=== PATIENT | female | born 1970 | race Caucasian/White ===

== ENCOUNTER → 2018-05-24 12:08 | Outpatient (CLI) | payer OTHER, MEDICAID, SELFPAY ==
--- NOTE | 2018-05-24 | DI.RAD.S_ITS ---
PROCEDURE: XR ACUTE ABDOMEN SERIES INDICATIONS: ABD PAIN, CONSTIPAITION TECHNIQUE: One view chest and two views of the abdomen were acquired. COMPARISON: [facility], CR, CHEST 2 VIEW, 12/06/2012, 17:48. [facility], CT, KIDNEY/ URETER/BLADDER, 09/13/2016, 0:20. FINDINGS: Surgical changes and devices: None. Chest: Lungs are clear. Heart size is normal. No pleural effusions. No pneumoperitoneum. Abdomen: Bowel gas pattern is normal. There is a large amount of stool in colon. No suspicious calcifications. Visualized solid organ contours appear normal. Bones: No suspicious bony lesions. IMPRESSION: A large amount of stool in colon. Dictated by: Enio Robertson M.D. on 05/24/2018 at 17:33 Approved by: Enio Robertson M.D. on 05/24/2018 at 17:33
== END ==
PROVIDERS: Family Provider Surgery; PCP Family Medicine; Visit Provider Family Medicine
DX: K59.00 Constipation, unspecified (principal); R10.9 Unspecified abdominal pain
CPT/HCPCS: 74021

== ENCOUNTER 2018-05-29 14:48 | Day surgery (SDC) | payer OTHER, MEDICAID, SELFPAY ==
[2018-05-29] VITALS (7 sets, daily range): BP systolic 87–112; BP diastolic 57–84; PULSE 63–70; RESP 11–18; TEMP 36.4–37.1; O2SAT 95–98; BMI 27.3
[2018-05-29] MEDS: SODIUM CHLORIDE 0.9% 1,000 ML 200 ML IV (15:24)
--- NOTE | 2018-05-29 16:07 | SUR.OPER ---
Pt. had Fentanyl 250 mcg, Versed 10mg
--- NOTE | 2018-05-29 16:13 | PM.PREOP ---
Pre-operative Note Interval Note Pre-op Check: Yes History & Physical Reviewed by Physician Changes: No ASA Class (for procedural sedation): III
--- NOTE | 2018-05-29 16:13 | PM.OP.1 ---
Operative Date/Time/Diagnoses Date of procedure: 05/29/18 Time of procedure: 16:13 Pre-op diagnosis: Constipation Post-op diagnosis: same Procedure & Clinicians Procedure: Colonoscopy to cecum Same procedure as scheduled: Yes Indications: No prior colonoscopy Surgeon: Azalia Rodriguez Click Yes if Unassisted: Yes Anesthesia Type: Sedation ( Versed 10 mg; fentanyl 250 mcg) Operative Notes Findings: 1. Adequate prep 2. No polyps or mass lesions 3. No AV malformations 4. Grade 2 internal hemorrhoids 5. Normal colonoscopy with no clear etiology for constipation Closure Type: not applicable Procedure in detail: After obtaining informed consent, the patient was brought to the GI suite and placed in the left lateral decubitus position on the examination table. After placement of appropriate monitors, the patient was given incremental doses of Versed and Fentanyl until an appropriate level of sedation was achieved. A time out was held per SCOAP protocol. A digital rectal examination was performed and did not reveal any masses or obstructing lesions. The colonoscope was gently passed into the patient's anus and the entire colon navigated to the level of the cecum with minimal difficulty. Once in the cecum, the scope was withdrawn being sure to go before and beyond all mucosal folds and prominences and get an excellent examination. The findings are noted above. At the level of the rectal vault, the scope was retroflexed and the internal anal canal was examined. The scope was straightened and air aspirated from the colon. The instrument was removed from the patient's body and the procedure was concluded. The patient was allowed to awaken from sedation without difficulty and taken to the post-anesthesia care unit in good condition. Total sedation time was 24 min Total withdrawal time 9 min Complications: none Condition: stable Disposition: PACU Plan for aftercare: 1. Discharge to home 2. Plan for next colonoscopy in 10 years or as clinically indicated
[2018-05-29] MEDS: fentaNYL 250 MCG/5 ML INJ IV (16:14)
[2018-05-29] MEDS: MIDAZOLAM 5 MG/5 ML VIAL IV (16:16)
== END 2018-05-29 17:17 | disposition home or self-care (01) ==
PROVIDERS: PCP Family Medicine; Visit Provider Surgery
PROC: 0DJD8ZZ Inspection of Lower Intestinal Tract, Via Natural or Artificial Opening Endoscopic (ICD-10-PCS; CPT 45378; principal; 2018-05-29 14:00)
DX: K59.00 Constipation, unspecified (principal); K64.0 First degree hemorrhoids; F17.210 Nicotine dependence, cigarettes, uncomplicated; F41.9 Anxiety disorder, unspecified; M79.7 Fibromyalgia; F43.12 Post-traumatic stress disorder, chronic
CPT/HCPCS: 45378; 99152; 99153; J2250; J3010

== ENCOUNTER → 2019-09-12 12:45 | Outpatient (CLI) | payer OTHER, MEDICAID, SELFPAY ==
--- NOTE | 2019-09-12 | DI.RAD.S_ITS ---
PROCEDURE: XR RIBS LT MIN 3V W CXR1V INDICATIONS: LEFT ANT RIB PAIN S/P FALL TECHNIQUE: 2 views of the left ribs were acquired, along with a single view chest. COMPARISON: None. FINDINGS: Surgical changes and devices: None. Bones and chest wall: No fractures or dislocations. No suspicious bony lesions. Overlying soft tissues appear unremarkable. Lungs and pleura: No pleural effusions or pneumothorax. Lungs appear clear. Mediastinum: Mediastinal contours appear normal. Heart size is normal. IMPRESSION: No rib fracture. No acute disease. Dictated by: Nura Sawyer M.D. on 09/12/2019 at 15:17 Approved by: Nura Sawyer M.D. on 09/12/2019 at 15:19
== END ==
PROVIDERS: PCP Family Medicine; Visit Provider Family Medicine
DX: R07.81 Pleurodynia (principal)
CPT/HCPCS: 71101

== ENCOUNTER → 2019-10-22 16:03 | Outpatient (ROUT) | payer OTHER, MEDICAID, SELFPAY ==
[2019-10-22 16:43] LABS: Influenza A - CEPHEID Flu A NEGATIVE (NEGATIVE); Influenza B - CEPHEID Flu B NEGATIVE (NEGATIVE)
== END ==
PROVIDERS: PCP Family Medicine; Visit Provider Nurse Practitioner Family
DX: R05 Cough (principal)
CPT/HCPCS: 87502

== ENCOUNTER → 2019-10-22 16:03 | Outpatient (CLI) | payer OTHER, MEDICAID, SELFPAY ==
--- NOTE | 2019-10-22 | DI.RAD.S_ITS ---
PROCEDURE: XR CHEST 2V INDICATIONS: cough TECHNIQUE: 2 views of the chest were acquired. COMPARISON: [facility], , CHEST 2 VIEW, 12/06/2012, 17:48. FINDINGS: Surgical changes and devices: None. Lungs and pleura: Lungs are clear. No pleural effusions or pneumothorax. Mediastinum: Mediastinal contours are normal. Heart size is normal. Bones and chest wall: No suspicious bony abnormalities. Soft tissues appear unremarkable. IMPRESSION: No acute disease. Dictated by: Nura Sawyer M.D. on 10/22/2019 at 16:46 Approved by: Nura Sawyer M.D. on 10/22/2019 at 16:47
== END ==
PROVIDERS: PCP Family Medicine; Visit Provider Nurse Practitioner Family
DX: R05 Cough (principal); M25.50 Pain in unspecified joint; M79.10 Myalgia, unspecified site
CPT/HCPCS: 71046; 87502

== ENCOUNTER → 2020-10-20 15:43 | Outpatient (CLI) | payer OTHER, MEDICAID, SELFPAY ==
--- NOTE | 2020-10-20 | DI.MG.S_ITS ---
BILATERAL DIGITAL SCREENING MAMMOGRAM 3D/2D WITH CAD: 10/20/2020 CLINICAL: Routine screening. Family history of breast cancer. Comparison is made to exams dated: 12/12/2017 mammogram, 06/05/2015 mammogram, and 01/03/2014 mammogram - [facility]. The tissue of both breasts is heterogeneously dense. This may lower the sensitivity of mammography. Current study was also evaluated with a Computer Aided Detection (CAD) system. No significant masses, calcifications, or other findings are seen in either breast. There has been no significant interval change. IMPRESSION: NEGATIVE There is no mammographic evidence of malignancy. A 1 year screening mammogram is recommended. This exam was interpreted at Station ID: [id number]. NOTE: For mammograms, a report in lay terms will be sent to the patient. Approximately 15% of breast malignancies will not be visualized mammographically. In the management of a palpable breast mass, a negative mammogram must not discourage biopsy of a clinically suspicious lesion. Electronically Signed By: Matt crane/cedrick:10/20/2020 16:02:12 letter sent: Normal Exam ACR BI-RADS Category 1: Negative [id number]
== END ==
PROVIDERS: PCP Family Medicine; Referring Provider Family Medicine; Visit Provider Family Medicine
DX: Z12.31 Encounter for screening mammogram for malignant neoplasm of breast (principal); Z80.3 Family history of malignant neoplasm of breast
CPT/HCPCS: 77063; 77067

== ENCOUNTER 2020-12-07 15:30 | Emergency (ER) | payer OTHER, MEDICAID, SELFPAY ==
[2020-12-07 15:41] VITALS: BP 125/75; PULSE 85; RESP 16; TEMP 36.9; O2SAT 99
--- NOTE | 2020-12-07 15:50 | DI.RAD.S_ITS ---
PROCEDURE: XR FOOT RT MIN 3V INDICATIONS: injury TECHNIQUE: 3 views of the foot were acquired. COMPARISON: [facility], , FOOT 3V RIGHT, 05/20/2016, 10:31. [facility], , FOOT 3V RIGHT, 04/22/2013, 17:19. FINDINGS: Bones: No fractures or dislocations. No suspicious bony lesions. Soft tissues: No tibiotalar joint effusion. Achilles tendon appears normal. IMPRESSION: Normal examination. Dictated by: Bridger Hammond M.D. on 12/07/2020 at 16:23 Approved by: Bridger Hammond M.D. on 12/07/2020 at 16:24
--- NOTE | 2020-12-07 18:40 | ED.LOWEXIN ---
HPI - Extremity Injury (Lower) General Chief Complaint: Extremity Injury, Lower Stated Complaint: RIGHT FOOT INJURY Time Seen by Provider: 12/07/20 18:40 Source: patient and other (caregiver) Mode of arrival: Wheelchair Limitations: no limitations History of Present Illness HPI Narrative: This is a 50-year-old female comes emergency department with complaint of right foot injury. Patient states about 3:00 a.m. this morning she tripped over her dog and some of the dog toys and injured her right foot. She complains indicates from the metatarsal region radiating up towards the ankle on the lateral side. Patient states no other injuries. She states pain has been significant. She took her home tramadol but has not taken any additional pain medication or [id number] pain medications. Patient states she has had a fracture in that foot in the past. Denies other symptoms besides nausea secondary to pain. Patient states she had very minimal ability to weight bear. She normally walks unassisted. She does have a history of hypothyroid, fibromyalgia, anxiety and PTSD and is present with her caregiver who assist her during the day at home. Patient follows with Dr. Ramos. Related Data Home Medications Medication Instructions Recorded Confirmed estradiol [Estrace] 1 mg PO QDAY #0 10/28/12 05/29/18 duloxetine 60 mg PO QDAY #0 10/10/17 05/29/18 mirtazapine 7.5 mg PO HSP PRN #0 10/10/17 05/29/18 prazosin 25 mg PO HS #0 10/10/17 05/29/18 hydroxyzine HCl See Rx Instructions .ROUTE 11/11/17 05/29/18 .COMPLEX PRN #0 lorazepam 1 mg PO TID PRN #0 11/11/17 05/29/18 bupropion HCl 200 mg PO DAILY 05/24/18 05/29/18 levothyroxine 50 mcg PO QAM 05/24/18 05/29/18 omeprazole 40 mg capsule,delayed 40 mg PO DAILY cap 05/24/18 05/29/18 release ondansetron 4 mg disintegrating 4 mg PO .prn PRN tab 05/24/18 05/29/18 tablet trazodone See Rx Instructions .ROUTE .COMPLEX 05/24/18 05/29/18 Previous Rx's Medication Instructions Recorded ondansetron HCl [Zofran] 4 mg PO Q4HP PRN #20 tab 10/10/17 tramadol 50 mg PO Q6HP PRN #20 tab 10/10/17 meloxicam [Mobic] 7.5 mg PO BID #20 tab 12/07/20 ondansetron HCl [Zofran] 4 mg PO Q6H PRN #10 tab 12/07/20 Allergies Allergy/AdvReac Type Severity Reaction Status Date / Time codeine [CODEINE] Allergy Severe ITCHY / Verified 12/07/20 15:50 RASH latex [LATEX] Allergy Mild HIVES Verified 12/07/20 15:50 gabapentin [GABAPENTIN] AdvReac Severe SEVERE Verified 12/07/20 15:50 DEPRESSION haloperidol [HALOPERIDOL] AdvReac Severe DYSTONIA Verified 12/07/20 15:50 methocarbamol [From ROBAXIN] AdvReac Severe DYSTONIA Verified 12/07/20 15:50 prochlorperazine AdvReac Severe DYSTONIA Verified 12/07/20 15:50 [PROCHLORPERAZINE] Review of Systems Review of Systems ROS Unobtainable: All systems reviewed & are unremarkable except as noted in HPI and below Patient History Medical History (Updated 12/07/20 @ 19:07 by Ana Liang DO) Anxiety Fibromyalgia PTSD (post-traumatic stress disorder) Surgical History H/O: hysterectomy Family History Father Cancer Social History household members: family and other occupational status: disabled Smoking Status: Current every day smoker alcohol intake: never substance use type: does not use Smoking Status: Current every day smoker alcohol intake frequency: other Substance Use Type: marijuana Exam Narrative Exam Narrative: GENERAL: Alert and oriented x three, well-nourished in mild distress. Patient is holding a emesis bag to her face. HEENT: Head normocephalic, atraumatic, EOMI, pupils reactive, face symmetric, moist mucous membranes NECK: Supple, full range of motion CARDIOVASCULAR: Regular rate and rhythm without murmurs, rubs or gallops. RESPIRATORY: Breath sounds equal bilaterally, no wheezes rales or rhonchi. ABDOMEN: Soft, nontender. Normoactive bowel sounds all 4 quadrants. No guarding or rebound, rigidity, no mass : No CVA tenderness EXTREMITIES: Normal range of motion, no clubbing or edema. Neurovascularly intact. Patient's right lower extremity has some tenderness over the 4th metatarsal, and nontender on palpation of the toes. Other metatarsal bones, lateral medial malleoli are nontender. Calcaneus is nontender. Patient does not have any obvious edema. No ecchymosis is appreciated. 2+ dorsalis and tibial pulses. Sensation present to light touch throughout. NEUROLOGICAL: Cranial nerves II through XII grossly intact. Moving all extremities SKIN: Warm, dry, no petechiae, no rashes or lesions. Initial Vital Signs Initial Vital Signs: Vital Signs Temperature 98.4 F 12/07/20 15:41 Pulse Rate 85 12/07/20 15:41 Respiratory Rate 16 12/07/20 15:41 Blood Pressure 125/75 12/07/20 15:41 Pulse Oximetry 99 12/07/20 15:41 Course Orders Ordered: ED Orders 12/07/20 15:50 XR foot RT min 3V Stat Discontinued Medications Ketorolac Tromethamine (Ketorolac 60 Mg/2 Ml Vial) 30 mg IM NOW ONE Stop: 12/07/20 18:59 Last Admin: 12/07/20 19:15 Dose: 30 mg Documented by: JIMMIE Ondansetron HCl (Ondansetron 4 Mg Odt) 4 mg SL NOW ONE Stop: 12/07/20 18:59 Last Admin: 12/07/20 19:14 Dose: 4 mg Documented by: JIMMIE Vital Signs Vital signs: Vital Signs - 8 hr 12/07/20 19:34 Pulse Rate 77 Respiratory Rate 16 Blood Pressure 122/76 Pulse Oximetry 99 MDM - Extremity Injury (Lower) Imaging Data Extremity x-ray #1: Radiologist's Impression: [address] [id number] ReportSigned Patient: Filipe Bernard KMR#: [id number]: 1970Acct:[id number]/Sex: 50 / FDate of Service: 12/07/20Loc: EDAccession Number: [id number] Procedure: XR foot RT min 3V Ordering Provider: Ana To-BC PROCEDURE: XR FOOT RT MIN 3V INDICATIONS: injury TECHNIQUE: 3 views of the foot were acquired. COMPARISON: [facility], , FOOT 3V RIGHT, 05/20/2016, 10:31. [facility], CR, FOOT 3V RIGHT, 04/22/2013, 17:19. FINDINGS: Bones: No fractures or dislocations. No suspicious bony lesions. Soft tissues: No tibiotalar joint effusion. Achilles tendon appears normal. IMPRESSION: Normal examination. Dictated by: Bridger Hammond M.D. on 12/07/2020 at 16:23 Approved by: Bridger Hammond M.D. on 12/07/2020 at 16:24 MDM Narrative Medical decision making narrative: 50-year-old female with complaint of right lower extremity injury greater than 12 hours prior. Patient has some tenderness over the 4th metatarsal. No obvious fracture noted. Patient treated with splint, crutches with weight-bearing as tolerated. Plan for prescription for pain medication, RICE and discussed need for follow-up in 7-10 days for repeat imaging to rule out occult fracture if patient is continuing to have significant symptoms. [employer] shows that patient has filled tramadol #120 and clonazepam #28 regularly with physician with no noted additional prescriptions. Patient given Toradol IM herer for pain control and rx for meloxicam also. Discharge Plan Departure Patient Disposition: Home Clinical Impression: Sprain of foot, right Instructions: DI for Foot Sprain Activity Restrictions/Additional Instructions: Follow-up with your primary care physician in the next 7-10 days if your symptoms have not resolved or significantly improved. There is always the possibility of an occult fracture that is not initially noted on imaging and this can be visualized when the bone is healing. Use crutches as needed. You may weightbear as tolerated. You may continue home medications as prescribed. Take prescription pain medication as prescribed. You may take this in conjunction with your tramadol/ultram. You may take zofran 1 tablet every 6 hours as needed for nausea. Splint Care: Keep splint clean and dry. Elevated affected body part to decrease swelling. OK to use ice pack on the affected body part. Use for 15-20 minutes each time, for 5-6x per day. If you develop worsening pain, numbness, tingling, discoloration of the affected body part, loosen the splint by loosening the SHANELL wrap, and either see your doctor for an urgent re-assessment, or return to the Emergency Department. Return to the Emergency Department for any new or worsening symptoms. Prescriptions: New meloxicam [Mobic] 7.5 mg tablet 7.5 mg PO BID Qty: 20 RF: 0 ondansetron HCl [Zofran] 4 mg tablet 4 mg PO Q6H PRN (Reason: nausea and vomiting) Qty: 10 RF: 0 No Action estradiol [Estrace] 1 MG tablet 1 mg PO QDAY Qty: 0 RF: 0 prazosin 1 MG capsule 25 mg PO HS Qty: 0 RF: 0 duloxetine 60 MG capsule,delayed release(DR/EC) 60 mg PO QDAY Qty: 0 RF: 0 mirtazapine 15 MG tablet 7.5 mg PO HSP PRN (Reason: UNKNOWN) Qty: 0 RF: 0 ondansetron HCl [Zofran] 4 MG tablet 4 mg PO Q4HP PRNQty: 20 RF: 0 tramadol 50 MG tablet 50 mg PO Q6HP PRNQty: 20 RF: 0 lorazepam 1 MG tablet 1 mg PO TID PRN (Reason: Anxiety) Qty: 0 RF: 0 hydroxyzine HCl 50 MG tablet See Rx Instructions .ROUTE .COMPLEX PRN (Reason: Pain (Scale Score 1-3)) Qty: 0 RF: 0 bupropion HCl 200 mg PO DAILY RF: 0 omeprazole 40 mg capsule,delayed release(DR/EC) 40 mg PO DAILY RF: 0 levothyroxine 50 mcg PO QAM RF: 0 trazodone See Rx Instructions .ROUTE .COMPLEX RF: 0 ondansetron [Zofran ODT] 4 mg tablet,disintegrating 4 mg PO .prn PRN (Reason: Nausea And Vomiting) RF: 0 Referrals: Bhavna Ramos MD [Primary Care Provider] -
[2020-12-07] MEDS: ONDANSETRON 4 MG ODT SL (19:14)
[2020-12-07] MEDS: KETOROLAC 60 MG/2 ML VIAL 30 MG IM (19:15)
[2020-12-07 19:34] VITALS: BP 122/76; PULSE 77; RESP 16; O2SAT 99
== END 2020-12-07 19:36 | disposition home or self-care (01) ==
PROVIDERS: Emergency Provider Emergency Medicine; PCP Family Medicine
DX: S93.601A Unspecified sprain of right foot, initial encounter (principal); W01.0XXA Fall on same level from slipping, tripping and stumbling without subsequent striking against object, initial encounter; E03.9 Hypothyroidism, unspecified; F41.9 Anxiety disorder, unspecified; M79.7 Fibromyalgia; F43.10 Post-traumatic stress disorder, unspecified
CPT/HCPCS: 29580; 73630; 96372; 99281; 99283; J1885

== ENCOUNTER → 2020-12-16 12:23 | Outpatient (CLI) | payer OTHER, MEDICAID, SELFPAY ==
--- NOTE | 2020-12-16 12:26 | DI.RAD.S_ITS ---
PROCEDURE: XR FOOT RT MIN 3V INDICATIONS: RIGHT FOOT PAIN TECHNIQUE: 3 views of the foot were acquired. COMPARISON: [facility], CR, XR FOOT RT MIN 3V, 12/07/2020, 16:00. [facility], CR, FOOT 3V RIGHT, 05/20/2016, 10:31. FINDINGS: Bones: No fractures or dislocations. No suspicious bony lesions. Soft tissues: No tibiotalar joint effusion. Achilles tendon appears normal. IMPRESSION: Normal for age, source of current foot pain symptoms is not seen. Dictated by: Bridger Hammond M.D. on 12/16/2020 at 13:34 Approved by: Bridger Hammond M.D. on 12/16/2020 at 13:34
--- NOTE | 2020-12-16 12:26 | DI.RAD.S_ITS ---
PROCEDURE: XR ANKLE RT MIN 3V INDICATIONS: RIGHT ANKLE PAIN TECHNIQUE: 3 views of the ankle were acquired. COMPARISON: [facility], ANKLE 3 VIEWS RIGHT, 11/24/2014, 14:39. [facility], ANKLE 3 VIEWS RIGHT, 02/20/2013, 10:01. FINDINGS: Bones: No fractures or dislocations. Ankle mortise is normally aligned. No suspicious bony lesions. Soft tissues: No tibiotalar joint effusion. Achilles tendon appears normal. IMPRESSION: No acute disease. Dictated by: Bridger Hammond M.D. on 12/16/2020 at 13:33 Approved by: Bridger Hammond M.D. on 12/16/2020 at 13:34
== END ==
PROVIDERS: PCP Family Medicine; Referring Provider Family Medicine; Visit Provider Family Medicine
DX: M79.671 Pain in right foot (principal); M25.571 Pain in right ankle and joints of right foot
CPT/HCPCS: 73610; 73630

== ENCOUNTER → 2021-04-06 16:10 | Outpatient (CLI) | payer OTHER, MEDICAID, SELFPAY ==
--- NOTE | 2021-04-06 | DI.RAD.S_ITS ---
PROCEDURE: XR SHOULDER LT MIN 2V INDICATIONS: Left Shoulder Pain TECHNIQUE: 3 views of the shoulder were acquired. COMPARISON: [facility], SHOULDER MINIMUM 2 VIEW LEFT, 02/13/2014, 16:45. [facility], SHOULDER MINIMUM 2 VIEW LEFT, 04/23/2013, 21:35. FINDINGS: Bones: No fractures or dislocations. No periosteal reaction. Minimal degenerative changes appreciated. No suspicious bony lesions. Visualized ribs appear intact. Soft tissues: No suspicious soft tissue calcifications. IMPRESSION: No fracture or dislocation. If clinically indicated consider MRI to evaluate the rotator cuff for further evaluation. Dictated by: Joni Arndt M.D. on 04/06/2021 at 17:49 Approved by: Joni Arndt M.D. on 04/06/2021 at 17:50
== END ==
PROVIDERS: PCP Family Medicine; Referring Provider Family Medicine; Visit Provider Family Medicine
DX: M25.512 Pain in left shoulder (principal)
CPT/HCPCS: 73030

== ENCOUNTER 2021-07-15 14:54 | Emergency (ER) | payer OTHER, MEDICAID, SELFPAY ==
[2021-07-15 14:58] VITALS: BP 132/74; PULSE 86; RESP 22; TEMP 36.9; O2SAT 99; BMI 27.4
[2021-07-15] MEDS: EPINEPHrine 1 MG/ML 0.5 MG IM (15:11)
[2021-07-15] MEDS: diphenhydrAMINE 50 MG/ML VIAL 25 MG IV (15:11)
[2021-07-15] MEDS: methylPREDNISolone 125 MG/2 ML VIAL IV (15:12)
[2021-07-15] MEDS: FAMOTIDINE 20 MG/2 ML VIAL IV (15:19)
[2021-07-15] MEDS: LORazepam 2 MG/ML INJ 0.5 MG IV (15:27)
--- NOTE | 2021-07-15 16:31 | ED_ITS ---
HPI - Allergic Reaction General Chief complaint: Allergic Reaction Stated complaint: Stung By Bee, Allergic Time Seen by Provider: 07/15/21 15:43 Source: patient Mode of arrival: Ambulatory History of Present Illness HPI narrative: Patient is a 51-year-old female. 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 She does have an EpiPen. Was stung earlier this afternoon by a bee. She did give herself her epi pens. She did have some feeling like her throat was closing afterwards which got better after she gave herself the EpiPen. That seems to be returning. She is also having quite a bit of anxiety in quite a bit of discomfort. Does have a history of fibromyalgia. Related Data Home Medications Medication Instructions Recorded Confirmed estradiol 1 mg tablet (Estrace) 1 mg PO QDAY #0 10/28/12 05/29/18 duloxetine 60 mg capsule,delayed 60 mg PO QDAY #0 10/10/17 05/29/18 release mirtazapine 15 mg tablet 7.5 mg PO HSP PRN #0 10/10/17 05/29/18 prazosin 1 mg capsule 25 mg PO HS #0 10/10/17 05/29/18 hydroxyzine HCl 50 mg tablet See Rx Instructions .ROUTE 11/11/17 05/29/18 .COMPLEX PRN #0 lorazepam 1 mg tablet 1 mg PO TID PRN #0 11/11/17 05/29/18 bupropion HCl 200 mg PO DAILY 05/24/18 05/29/18 levothyroxine 50 mcg PO QAM 05/24/18 05/29/18 omeprazole 40 mg capsule,delayed 40 mg PO DAILY cap 05/24/18 05/29/18 release ondansetron 4 mg disintegrating 4 mg PO .prn PRN tab 05/24/18 05/29/18 tablet (Zofran ODT) trazodone See Rx Instructions .ROUTE .COMPLEX 05/24/18 05/29/18 Previous Rx's Medication Instructions Recorded ondansetron HCl 4 mg tablet 4 mg PO Q4HP PRN #20 tab 10/10/17 (Zofran) tramadol 50 mg tablet 50 mg PO Q6HP PRN #20 tab 10/10/17 meloxicam 7.5 mg tablet (Mobic) 7.5 mg PO BID #20 tab 12/07/20 ondansetron HCl 4 mg tablet 4 mg PO Q6H PRN #10 tab 12/07/20 (Zofran) epinephrine 0.3 mg/0.3 mL 0.3 mg IM Q5-15M PRN #2 ea 07/15/21 injection, auto-injector (EpiPen 2-Jose G) prednisone 20 mg tablet 20 mg PO DAILY 3 Days #3 tab 07/15/21 Allergies Allergy/AdvReac Type Severity Reaction Status Date / Time codeine [CODEINE] Allergy Severe ITCHY / Verified 07/15/21 15:00 RASH latex [LATEX] Allergy Mild HIVES Verified 07/15/21 15:00 gabapentin [GABAPENTIN] AdvReac Severe SEVERE Verified 07/15/21 15:00 DEPRESSION haloperidol [HALOPERIDOL] AdvReac Severe DYSTONIA Verified 07/15/21 15:00 methocarbamol [From ROBAXIN] AdvReac Severe DYSTONIA Verified 07/15/21 15:00 prochlorperazine AdvReac Severe DYSTONIA Verified 07/15/21 15:00 [PROCHLORPERAZINE] Review of Systems Constitutional Comments: No fevers ENT Comments: Throat swelling Cardiovascular Comments: No chest bone Respiratory Comments: No shortness of breath, cough Gastrointestinal Comments: No nausea vomiting Integumentary/Breasts Comments: Bee sting to her right upper inner thigh Neurologic Neurologic: Reports system reviewed and no additional complaints, except as documented Hematologic/Lymphatic On Anticoagulants: No Allergic/Immunologic Allergic/Immunologic: Reports system reviewed and no additional complaints, except as documented Patient History Medical History Anxiety Fibromyalgia PTSD (post-traumatic stress disorder) Surgical History H/O: hysterectomy Family History Father Cancer Social History household members: family and other occupational status: disabled Smoking Status: Current every day smoker alcohol intake: never substance use type: does not use Smoking Status: Current every day smoker tobacco type: cigarettes alcohol intake frequency: other Substance Use Type: marijuana Exam Initial Vital Signs Initial Vital Signs: Vital Signs Temperature 98.5 F 07/15/21 14:58 Pulse Rate 86 07/15/21 14:58 Respiratory Rate 22 07/15/21 14:58 Blood Pressure 132/74 07/15/21 14:58 Pulse Oximetry 99 07/15/21 14:58 Const General: cooperative and comfortable [facility] Head: normal to inspection and normocephalic Eyes General: appearance normal, both eyes and all related structures Resp Effort & Inspection: normal respiratory effort Auscultation: clear to auscultation bilaterally Cardio Rate: regular rate Rhythm: regular rhythm Skin Other: Patient does have a localized bee sting of the right upper inner thigh. No surrounding erythema. Neuro General: patient alert, patient awake and moves all extremities Extrem General: normal to inspection and capillary refill normal Psych Other: Anxious Course Orders Ordered: Discontinued Medications Diphenhydramine HCl (Diphenhydramine 50 Mg/Ml Vial) 25 mg IV NOW ONE Stop: 07/15/21 15:04 Last Admin: 07/15/21 15:11 Dose: 25 mg Documented by: JIMMIE Epinephrine HCl (Epinephrine 1 Mg/Ml) 0.5 mg IM NOW ONE Stop: 07/15/21 15:04 Last Admin: 07/15/21 15:11 Dose: 0.5 mg Documented by: JIMMIE Famotidine (Famotidine 20 Mg/2 Ml Vial) 20 mg IV NOW ONE Stop: 07/15/21 15:04 Last Admin: 07/15/21 15:19 Dose: 20 mg Documented by: JIMMIE Ketorolac Tromethamine (Ketorolac 30 Mg/Ml Vial) 30 mg IV NOW ONE Stop: 07/15/21 16:32 Last Admin: 07/15/21 16:40 Dose: 30 mg Documented by: LIVIA Lorazepam (Lorazepam 2 Mg/Ml Inj) 0.5 mg IV NOW ONE Stop: 07/15/21 15:24 Last Admin: 07/15/21 15:27 Dose: 0.5 mg Documented by: LIVIA Methylprednisolone (Methylprednisolone 125 Mg/2 Ml Vial) 125 mg IV NOW ONE Stop: 07/15/21 15:04 Last Admin: 07/15/21 15:12 Dose: 125 mg Documented by: JIMMIE Vital Signs Vital signs: Vital Signs - 8 hr 07/15/21 14:58 07/15/21 18:00 Temperature 98.5 F Pulse Rate 86 55 L Respiratory Rate 22 16 Blood Pressure 132/74 112/69 Pulse Oximetry 99 97 MDM - Allergic Reaction MDM Narrative Medical decision making narrative: Patient received more medications here in the emergency department to include epinephrine. She was observed without any worsening of the symptoms actually improved the symptoms. She has no rash. Patient does have quite a bit of anxiety. Will discharge home with a refill of her EpiPen and also was given a prescription for steroids for the next couple days. She was given return precautions. She expressed understanding and agreement. Discharge Plan Departure Patient Disposition: Home Clinical Impression: Bee sting-induced anaphylaxis Instructions: DI for Anaphylaxis Activity Restrictions/Additional Instructions: A prescription for a refill of your EpiPen and also steroids was transmitted to [facility] in [place]. Continue the rest your medications as directed. Putting ice over the area of the sting will help with some of the discomfort. Return to the emergency department for any new or worsening symptoms. Prescriptions: New prednisone 20 mg tablet 20 mg PO DAILY 3 Days Qty: 3 RF: 0 epinephrine [EpiPen 2-Jose G] 0.3 mg/0.3 mL auto-injector 0.3 mg IM Q5-15M PRN (Reason: anaphylaxis) Qty: 2 RF: 0 No Action estradiol [Estrace] 1 MG tablet 1 mg PO QDAY Qty: 0 RF: 0 prazosin 1 MG capsule 25 mg PO HS Qty: 0 RF: 0 duloxetine 60 MG capsule,delayed release(DR/EC) 60 mg PO QDAY Qty: 0 RF: 0 mirtazapine 15 MG tablet 7.5 mg PO HSP PRN (Reason: UNKNOWN) Qty: 0 RF: 0 ondansetron HCl [Zofran] 4 MG tablet 4 mg PO Q4HP PRNQty: 20 RF: 0 tramadol 50 MG tablet 50 mg PO Q6HP PRNQty: 20 RF: 0 lorazepam 1 MG tablet 1 mg PO TID PRN (Reason: Anxiety) Qty: 0 RF: 0 hydroxyzine HCl 50 MG tablet See Rx Instructions .ROUTE .COMPLEX PRN (Reason: Pain (Scale Score 1-3)) Qty: 0 RF: 0 bupropion HCl 200 mg PO DAILY RF: 0 omeprazole 40 mg capsule,delayed release(DR/EC) 40 mg PO DAILY RF: 0 levothyroxine 50 mcg PO QAM RF: 0 trazodone See Rx Instructions .ROUTE .COMPLEX RF: 0 ondansetron [Zofran ODT] 4 mg tablet,disintegrating 4 mg PO .prn PRN (Reason: Nausea And Vomiting) RF: 0 meloxicam [Mobic] 7.5 mg tablet 7.5 mg PO BID Qty: 20 RF: 0 ondansetron HCl [Zofran] 4 mg tablet 4 mg PO Q6H PRN (Reason: nausea and vomiting) Qty: 10 RF: 0 Referrals: Bhavna Ramos MD [Primary Care Provider] -
[2021-07-15] MEDS: KETOROLAC 30 MG/ML VIAL IV (16:40)
[2021-07-15 18:00] VITALS: BP 112/69; PULSE 55; RESP 16; O2SAT 97
== END 2021-07-15 18:00 | disposition home or self-care (01) ==
PROVIDERS: Emergency Provider Emergency Medicine; PCP Family Medicine
DX: T63.441A Toxic effect of venom of bees, accidental (unintentional), initial encounter (principal)
CPT/HCPCS: 36415; 96372; 96374; 96375; 99284; J0171; J1200; J1885; J2060; J2930

== ENCOUNTER 2021-07-20 13:06 | Emergency (ER) | payer OTHER, MEDICAID, SELFPAY ==
[2021-07-20 13:15] VITALS: BP 128/82; PULSE 104; RESP 22; TEMP 37.3; O2SAT 97
--- NOTE | 2021-07-20 17:29 | PC.NURSE ---
Medial thigh has a small spot, with surrounding bruising. Site is not red or indurated. No drainage noted and no signs of tissue irritation to the surface of the skin.
--- NOTE | 2021-07-20 18:09 | ED.SKABFB ---
HPI - Skin/Abscess/Foreign Bdy <Kate Allen PA-C - Last Filed: 07/23/21 14:26> General Chief complaint: Skin/Abscess/Foreign Body Stated complaint: Black Oozing Spot on Bee Sting, Allergic Time Seen by Provider: 07/20/21 17:35 Source: patient Mode of arrival: Ambulatory History of Present Illness HPI narrative: 51-year-old female with past medical history bee sting induced anaphylaxis, ureterolithiasis, fibromyalgia presents to the ED with pain at the site of a prior bee sting. Patient was seen on 07/15/2021 for a bee sting induced anaphylactic reaction, treated for the same, discharged home. Patient states that since then the site of the bee pain has become painful, patient saw some discharge, patient thinks that might be a bee stinger still left behind. Patient denies fevers, chills, cough, shortness of breath, chest pain, angioedema, chest tightness, throat tightrness, nausea, vomiting, abdominal pain, dysuria, lightheadedness, dizziness, syncope. Related Data Home Medications Medication Instructions Recorded Confirmed estradiol 1 mg tablet (Estrace) 1 mg PO QDAY #0 10/28/12 05/29/18 duloxetine 60 mg capsule,delayed 60 mg PO QDAY #0 10/10/17 05/29/18 release mirtazapine 15 mg tablet 7.5 mg PO HSP PRN #0 10/10/17 05/29/18 prazosin 1 mg capsule 25 mg PO HS #0 10/10/17 05/29/18 hydroxyzine HCl 50 mg tablet See Rx Instructions .ROUTE 11/11/17 05/29/18 .COMPLEX PRN #0 lorazepam 1 mg tablet 1 mg PO TID PRN #0 11/11/17 05/29/18 bupropion HCl 200 mg PO DAILY 05/24/18 05/29/18 levothyroxine 50 mcg PO QAM 05/24/18 05/29/18 omeprazole 40 mg capsule,delayed 40 mg PO DAILY cap 05/24/18 05/29/18 release ondansetron 4 mg disintegrating 4 mg PO .prn PRN tab 05/24/18 05/29/18 tablet (Zofran ODT) trazodone See Rx Instructions .ROUTE .COMPLEX 05/24/18 05/29/18 Previous Rx's Medication Instructions Recorded ondansetron HCl 4 mg tablet 4 mg PO Q4HP PRN #20 tab 10/10/17 (Zofran) tramadol 50 mg tablet 50 mg PO Q6HP PRN #20 tab 10/10/17 meloxicam 7.5 mg tablet (Mobic) 7.5 mg PO BID #20 tab 12/07/20 ondansetron HCl 4 mg tablet 4 mg PO Q6H PRN #10 tab 12/07/20 (Zofran) epinephrine 0.3 mg/0.3 mL 0.3 mg IM Q5-15M PRN #2 ea 07/15/21 injection, auto-injector (EpiPen 2-Jose G) Allergies Allergy/AdvReac Type Severity Reaction Status Date / Time codeine [CODEINE] Allergy Severe ITCHY / Verified 07/15/21 15:00 RASH latex [LATEX] Allergy Mild HIVES Verified 07/15/21 15:00 gabapentin [GABAPENTIN] AdvReac Severe SEVERE Verified 07/15/21 15:00 DEPRESSION haloperidol [HALOPERIDOL] AdvReac Severe DYSTONIA Verified 07/15/21 15:00 methocarbamol [From ROBAXIN] AdvReac Severe DYSTONIA Verified 07/15/21 15:00 prochlorperazine AdvReac Severe DYSTONIA Verified 07/15/21 15:00 [PROCHLORPERAZINE] Review of Systems <Kate Allen PA-C - Last Filed: 07/23/21 14:26> Constitutional Constitutional: Denies chills, Denies fatigue, Denies fever(s), Denies frequent falls, Denies lethargy and Denies weakness Eyes Eyes: Denies change in vision, Denies eye discharge, Denies irritation and Denies loss of vision ENT Ears, Nose, Mouth, and Throat: Denies change in voice, Denies dizziness, Denies neck pain, Denies sore throat and Denies throat swelling Cardiovascular Cardiovascular: Denies chest pain, Denies irregular heart rhythm, Denies lightheadedness, Denies palpitations, Denies dyspnea, Denies dyspnea on exertion and Denies orthopnea Respiratory Respiratory: Denies cough, Denies dyspnea, Denies dyspnea on exertion and Denies wheezing Gastrointestinal Gastrointestinal: Denies abdominal pain, Denies change in bowel habits, Denies diarrhea, Denies nausea and Denies vomiting Musculoskeletal Musculoskeletal: Denies neck pain and Denies numbness Integumentary/Breasts Skin/Breast: Denies pruritus, Denies erythema, Denies rash and Reports wounds Comments: Bee sting that is more painful Neurologic Neurologic: Denies behavioral changes, Denies confusion, Denies dizziness, Denies frequent falls, Denies loss of vision, Denies numbness and Denies weakness Psychiatric Psychiatric: Denies anxiety, Denies behavioral changes, Denies confusion, Denies depression, Denies homicidal ideation and Denies suicidal ideation Endocrine Endocrine: Denies fatigue, Denies flushing and Denies palpitations Hematologic/Lymphatic Hematologic/Lymphatic: Denies easy bruising Allergic/Immunologic Allergic/Immunologic: Denies urticaria, Denies throat swelling and Denies wheezing Patient History <Kate Allen PA-C - Last Filed: 07/23/21 14:26> Medical History Anxiety Fibromyalgia PTSD (post-traumatic stress disorder) Surgical History H/O: hysterectomy Family History Father Cancer Social History household members: family and other occupational status: disabled Smoking Status: Current every day smoker alcohol intake: never substance use type: does not use Smoking Status: Current every day smoker tobacco type: cigarettes alcohol intake frequency: other Substance Use Type: marijuana Exam <Kate Allen PA-C - Last Filed: 07/23/21 14:26> Initial Vital Signs Initial Vital Signs: Vital Signs Temperature 99.1 F 07/20/21 13:15 Pulse Rate 104 H 07/20/21 13:15 Respiratory Rate 22 07/20/21 13:15 Blood Pressure 128/82 07/20/21 13:15 Pulse Oximetry 97 07/20/21 13:15 Const General: cooperative HENMT Head: normocephalic and atraumatic Ears: external ears normal and TM's normal bilaterally Nose: external nose normal and No nasal discharge Face and sinus: sinuses nontender, face symmetric, no sinus tenderness and No dry mucous membranes Mouth: oral mucosae normal and moist mucous membranes Teeth and gingiva: dentition normal Throat: tonsils normal and uvula midline Eyes General: appearance normal, both eyes and all related structures Eyelids: eyelids normal Conjunctivae: conjunctivae normal Sclera: sclerae normal Pupils: PERRL EOM: EOM intact bilaterally Neck Neck: normal visual inspection, trachea midline, No lymphadenopathy, No midline deformity and No JVD Lymphatic: No lymphedema Chest Chest: normal inspection of the chest Resp Effort & Inspection: normal respiratory effort, able to speak in complete sentences, no respiratory distress and no use of accessory muscles Auscultation: clear to auscultation bilaterally, no rales, no rhonchi and no wheezes Cardio Rate: regular rate Rhythm: regular rhythm Heart Sounds: no click, no gallops, no murmurs and no rubs Pulses: normal peripheral pulses GI Inspection: non-distended Palpation: soft, no hepatosplenomegaly, No guarding, No pulsatile mass and No tender Auscultation: normal bowel sounds Back/Spine/Pelvis Back: No CVA tenderness Cervical Spine: cervical ROM normal and No pain with cervical ROM Thoracic/Lumbar Spine: thoracic and lumbar spine normal to inspection Skin General: no rashes or lesions noted, No jaundice and No petechiae Other: The site of the bee sting has no evidence of infection including erythema, discharge, swelling, warmth. Some bruising seen surrounding the site of the bee sting. No evidence of a stinger or other foreign body retained in the wound based on probing the wound. Neuro General: patient alert, patient oriented x3, gait normal and no focal motor deficits Speech: speech normal Extrem General: full ROM, no clubbing, cyanosis or edema, no pedal edema and no calf tenderness Psych Appearance: well kempt Mental Status: mental status grossly normal Attitude: cooperative Thought Content: normal and suicidality Judgment: judgment good <Ana Liang DO - Last Filed: 07/25/21 16:07> Initial Vital Signs Initial Vital Signs: Vital Signs Temperature 99.1 F 07/20/21 13:15 Pulse Rate 104 H 07/20/21 13:15 Respiratory Rate 22 07/20/21 13:15 Blood Pressure 128/82 07/20/21 13:15 Pulse Oximetry 97 07/20/21 13:15 Course <Kate Allen PA-C - Last Filed: 07/23/21 14:26> Orders Ordered: Discontinued Medications Lidocaine (Lidocaine Patch 1 Each Adh..Patch) 1 each TOP NOW ONE Stop: 07/20/21 18:27 Last Admin: 07/20/21 18:41 Dose: 1 each Documented by: ALONSO Vital Signs Vital signs: Vital Signs - 8 hr 07/20/21 13:15 Temperature 99.1 F Pulse Rate 104 H Respiratory Rate 22 Blood Pressure 128/82 Pulse Oximetry 97 <Ana Liang DO - Last Filed: 07/25/21 16:07> Orders Ordered: Discontinued Medications Lidocaine (Lidocaine Patch 1 Each Adh..Patch) 1 each TOP NOW ONE Stop: 07/20/21 18:27 Last Admin: 07/20/21 18:41 Dose: 1 each Documented by: ALONSO Vital Signs Vital signs: Vital Signs - 8 hr 07/20/21 13:15 Temperature 99.1 F Pulse Rate 104 H Respiratory Rate 22 Blood Pressure 128/82 Pulse Oximetry 97 MDM - Skin/Abscess/Foreign Bdy <Kate Allen PA-C - Last Filed: 07/23/21 14:26> MDM Narrative Medical decision making narrative: 51-year-old female with past medical history bee sting induced anaphylaxis, ureterolithiasis, fibromyalgia presents to the ED with pain at the site of a prior bee sting. Given physical exam, no evidence of infection including erythema, swelling, warmth, discharge. No evidence from probing of the wound, of a bee sting GERD or other foreign object retained in the wound. will apply lidocaine patch for pain. Will discharge home with ED return precautions. Patient verbalizes understanding. Discharge Plan Departure Patient Disposition: Home Clinical Impression: Bee sting Qualifiers: Encounter type: subsequent encounter Injury intent: accidental or unintentional Qualified Code(s): T63.441D - Toxic effect of venom of bees, accidental (unintentional), subsequent encounter Instructions: DI for Insect Bites and Stings Activity Restrictions/Additional Instructions: You were evaluated in the ED today for an insect bite. You vitals are stable, the wound does not appear to be infected. There is no swelling, pus. A lidocaine patch was applied for the pain. You may use [id number] lidocaine patches for pain relief. Return to the ED if you experience tongue swelling, shortness of breath, throat tightness, chest pain. Prescriptions: No Action estradiol [Estrace] 1 MG tablet 1 mg PO QDAY Qty: 0 RF: 0 prazosin 1 MG capsule 25 mg PO HS Qty: 0 RF: 0 duloxetine 60 MG capsule,delayed release(DR/EC) 60 mg PO QDAY Qty: 0 RF: 0 mirtazapine 15 MG tablet 7.5 mg PO HSP PRN (Reason: UNKNOWN) Qty: 0 RF: 0 ondansetron HCl [Zofran] 4 MG tablet 4 mg PO Q4HP PRNQty: 20 RF: 0 tramadol 50 MG tablet 50 mg PO Q6HP PRNQty: 20 RF: 0 lorazepam 1 MG tablet 1 mg PO TID PRN (Reason: Anxiety) Qty: 0 RF: 0 hydroxyzine HCl 50 MG tablet See Rx Instructions .ROUTE .COMPLEX PRN (Reason: Pain (Scale Score 1-3)) Qty: 0 RF: 0 bupropion HCl 200 mg PO DAILY RF: 0 omeprazole 40 mg capsule,delayed release(DR/EC) 40 mg PO DAILY RF: 0 levothyroxine 50 mcg PO QAM RF: 0 trazodone See Rx Instructions .ROUTE .COMPLEX RF: 0 ondansetron [Zofran ODT] 4 mg tablet,disintegrating 4 mg PO .prn PRN (Reason: Nausea And Vomiting) RF: 0 epinephrine [EpiPen 2-Jose G] 0.3 mg/0.3 mL auto-injector 0.3 mg IM Q5-15M PRN (Reason: anaphylaxis) Qty: 2 RF: 0 meloxicam [Mobic] 7.5 mg tablet 7.5 mg PO BID Qty: 20 RF: 0 ondansetron HCl [Zofran] 4 mg tablet 4 mg PO Q6H PRN (Reason: nausea and vomiting) Qty: 10 RF: 0 Referrals: Bhavna Ramos MD [Primary Care Provider] - <Ana Liang DO - Last Filed: 07/25/21 16:07> Cosign ED Attending Cosignature Attestation: I was immediately available in the department for consultation. Documentation has been reviewed.
[2021-07-20] MEDS: LIDOCAINE PATCH 1 EACH ADH..PATCH TOP (18:41)
== END 2021-07-20 18:45 | disposition home or self-care (01) ==
PROVIDERS: Emergency Provider Student in an Organized Health Care Education/Training Program; PCP Family Medicine
DX: T63.441A Toxic effect of venom of bees, accidental (unintentional), initial encounter (principal)
CPT/HCPCS: 99282

== ENCOUNTER → 2022-03-15 12:54 | Outpatient (CLI) | payer OTHER, MEDICAID, SELFPAY ==
--- NOTE | 2022-03-15 12:57 | DI.MG.S_ITS ---
BILATERAL DIGITAL SCREENING MAMMOGRAM 3D/2D WITH CAD: 03/15/2022 CLINICAL: Routine screening. Family history of breast cancer. Comparison is made to exams dated: 10/20/2020 mammogram, 12/12/2017 mammogram, and 06/05/2015 mammogram - [facility]. The tissue of both breasts is heterogeneously dense. This may lower the sensitivity of mammography. Current study was also evaluated with a Computer Aided Detection (CAD) system. No significant masses, calcifications, or other findings are seen in either breast. There has been no significant interval change. IMPRESSION: NEGATIVE There is no mammographic evidence of malignancy. A 1 year screening mammogram is recommended. This exam was interpreted at Station ID: [id number]. NOTE: For mammograms, a report in lay terms will be sent to the patient. Approximately 15% of breast malignancies will not be visualized mammographically. In the management of a palpable breast mass, a negative mammogram must not discourage biopsy of a clinically suspicious lesion. Electronically Signed By: Mis hartman/cedrick:03/15/2022 15:32:13 letter sent: Normal Exam ACR BI-RADS Category 1: Negative [id number]
== END ==
PROVIDERS: PCP Family Medicine; Referring Provider Family Medicine; Visit Provider Family Medicine
DX: Z12.31 Encounter for screening mammogram for malignant neoplasm of breast (principal); Z80.3 Family history of malignant neoplasm of breast
CPT/HCPCS: 77063; 77067

== ENCOUNTER 2022-05-21 13:32 | Emergency (ER) | payer OTHER, MEDICAID, SELFPAY ==
[2022-05-21 13:41] VITALS: BP 125/72; PULSE 67; RESP 16; TEMP 36.5; O2SAT 98; BMI 28.7
--- NOTE | 2022-05-21 13:49 | DI.RAD.S_ITS ---
PROCEDURE: XR WRIST RT MIN 3V INDICATIONS: fall TECHNIQUE: 4 views of the wrist were acquired. COMPARISON: [facility], , WRIST MINIMUM 3 VIEWS LEFT, 04/25/2013, 11:38. FINDINGS: Bones: No fractures or dislocations. No suspicious bony lesions. Scaphoid view: Unremarkable Soft tissues: No suspicious soft tissue calcifications. IMPRESSION: Unremarkable right wrist radiographs Approved by: Carlos A Pisano M.D. on 05/21/2022 at 14:10
--- NOTE | 2022-05-21 16:42 | ED.UPPEXIN ---
HPI - Extremity Injury (Upper) <NETO Orellana - Last Filed: 05/21/22 17:16> General Chief Complaint: Extremity Injury, Upper Stated Complaint: FELL; sprain/fracture rt wrist Time Seen by Provider: 05/21/22 13:48 Source: patient Mode of arrival: Family Vehicle History of Present Illness HPI narrative: 52-year-old female, daily smoker, that presents to the emergency department with right wrist pain after losing her balance and falling down yesterday. History of fibromyalgia. Patient reports worsening pain with movement. No swelling or deformity noted. Related Data Home Medications Medication Instructions Recorded Confirmed estradiol 1 mg tablet (Estrace) 1 mg PO QDAY ##0 10/28/12 05/29/18 duloxetine 60 mg capsule,delayed 60 mg PO QDAY ##0 10/10/17 05/29/18 release mirtazapine 15 mg tablet 7.5 mg PO HSP PRN UNKNOWN ##0 10/10/17 05/29/18 prazosin 1 mg capsule 25 mg PO HS ##0 10/10/17 05/29/18 hydroxyzine HCl 50 mg tablet See Rx Instructions .Route 11/11/17 05/29/18 .COMPLEX PRN Pain (Scale Score 1-3) ##0 lorazepam 1 mg tablet 1 mg PO TID PRN Anxiety ##0 11/11/17 05/29/18 bupropion HCl 200 mg PO DAILY 05/24/18 05/29/18 levothyroxine 50 mcg PO QAM 05/24/18 05/29/18 omeprazole 40 mg capsule,delayed 40 mg PO DAILY 05/24/18 05/29/18 release ondansetron 4 mg disintegrating 4 mg PO .prn PRN Nausea And 05/24/18 05/29/18 tablet (Zofran ODT) Vomiting trazodone See Rx Instructions .Route 05/24/18 05/29/18 .COMPLEX SLEEP Previous Rx's Medication Instructions Recorded ondansetron HCl 4 mg tablet 4 mg PO Q4HP PRN #20 tabs 10/10/17 (Zofran) tramadol 50 mg tablet 50 mg PO Q6HP PRN #20 tabs 10/10/17 meloxicam 7.5 mg tablet (Mobic) 7.5 mg PO BID #20 tabs 12/07/20 ondansetron HCl 4 mg tablet 4 mg PO Q6H PRN nausea and 12/07/20 (Zofran) vomiting #10 tabs epinephrine 0.3 mg/0.3 mL 0.3 mg (0.3 mL) IM Q5-15M PRN 07/15/21 injection, auto-injector (EpiPen anaphylaxis #2 ea 2-Jose G) Allergies Allergy/AdvReac Type Severity Reaction Status Date / Time codeine [CODEINE] Allergy Severe ITCHY / Verified 05/21/22 13:47 RASH latex [LATEX] Allergy Mild HIVES Verified 05/21/22 13:47 haloperidol [HALOPERIDOL] AdvReac Severe DYSTONIA Verified 05/21/22 13:47 methocarbamol [From ROBAXIN] AdvReac Severe DYSTONIA Verified 05/21/22 13:47 prochlorperazine AdvReac Severe DYSTONIA Verified 05/21/22 13:47 [PROCHLORPERAZINE] Review of Systems <NETO Orellana - Last Filed: 05/21/22 17:16> Review of Systems Narrative: Narrative: GENERAL: Denies chills, fatigue, fever, sweats. See HPI HEENT: Denies sinus pain, ear pain, sore throat, difficulty swallowing, dizziness. RESPIRATORY: Denies dyspnea, cough, wheezing, sputum. CARDIOVASCULAR: Denies chest pain, palpitations, edema. GASTROINTESTINAL: Denies nausea, vomiting, abdominal pain, diarrhea, constipation. : Denies dysuria, frequency, incontinence, hematuria, urinary retention, flank pain. MSK: Endorses right wrist pain that worsens with movement. SKIN: Denies rash, skin lesions, or pruritis. NEUROLOGIC: Denies weakness, dizziness, headache, numbness, confusion. PSYCHIATRIC: No concerning psychosocial issues. Patient History <NETO Orellana - Last Filed: 05/21/22 17:16> Medical History (Updated 05/21/22 @ 17:09 by NETO Orellana) Anxiety Fibromyalgia PTSD (post-traumatic stress disorder) Surgical History H/O: hysterectomy Family History Father Cancer Social History household members: family and other occupational status: disabled Smoking Status: Current every day smoker alcohol intake: never substance use type: does not use Smoking Status: Current every day smoker tobacco type: cigarettes alcohol intake frequency: 0-2 drinks per day Substance Use Type: marijuana Exam <Nate JoshiNETO kam - Last Filed: 05/21/22 17:16> Narrative Exam Narrative: Exam Narrative: GENERAL: This is a well-nourished, well-developed patient, in no acute distress HEAD: Atraumatic. Normocephalic. EYES: Pupils equal round and reactive. Extraocular motions intact. No scleral icterus, injection or drainage. ENT: Nose without bleeding, purulent drainage. Throat without erythema, tonsillar hypertrophy or exudate. Airway patent. NECK: Trachea midline. No JVD or lymphadenopathy. Nontender. CARDIOVASCULAR: Regular rate and rhythm without murmurs, peripheral pulses intact, cap refill <2 sec. RESPIRATORY: Breath sounds equal and clear bilaterally. No wheezes, rales, or rhonchi. No cough. No increased respiratory effort. No accessory muscle use. GASTROINTESTINAL: Abdomen soft, non-tender, nondistended without guarding or rebound. No suprapubic pain. MSK: Decreased range of motion right wrist secondary to pain. Neurovascularly intact. NEURO: A&O x 3. SKIN: Warm, dry, no rashes or lesions noted. Initial Vital Signs Initial Vital Signs: Vital Signs Temperature 97.7 F 05/21/22 13:41 Pulse Rate 67 05/21/22 13:41 Respiratory Rate 16 05/21/22 13:41 Blood Pressure 125/72 05/21/22 13:41 Pulse Oximetry 98 05/21/22 13:41 Oxygen Delivery Method 05/21/22 13:41 Reviewed Extrem Other: WRIST: There is no bruising, swelling or asymmetry. There is mild tenderness to palpation over the distal radial head. There is no snuff-box tenderness. Sensation grossly intact. Patient is able to pronate and supinate without pain. Range of motion is limited due to pain. Radial pulse intact. Darkroom Technician is strong and equivalent. Inter-digital strength is intact. The contralateral wrist exam is unremarkable. <Domingo Lorenz MD - Last Filed: 05/22/22 08:13> Initial Vital Signs Initial Vital Signs: Vital Signs Temperature 97.7 F 05/21/22 13:41 Pulse Rate 67 05/21/22 13:41 Respiratory Rate 16 05/21/22 13:41 Blood Pressure 125/72 05/21/22 13:41 Pulse Oximetry 98 05/21/22 13:41 Oxygen Delivery Method 05/21/22 13:41 Procedures <NETO Orellana - Last Filed: 05/21/22 17:16> Orthopedic Splinting/Casting Injury #1: Side: right Upper Extremity Immobilizer: wrist splint Post splinting neuro exam: intact Post splinting vascular exam: intact Course <NETO Orellana - Last Filed: 05/21/22 17:16> Orders Ordered: ED Orders 05/21/22 13:49 XR wrist RT min 3V Stat Vital Signs Vital signs: Vital Signs - 8 hr 05/21/22 13:41 Temperature 97.7 F Pulse Rate 67 Respiratory Rate 16 Blood Pressure 125/72 Pulse Oximetry 98 Oxygen Delivery Method Room Air <Domingo Lorenz MD - Last Filed: 05/22/22 08:13> Orders Ordered: ED Orders 05/21/22 13:49 XR wrist RT min 3V Stat Vital Signs Vital signs: Vital Signs - 8 hr 05/21/22 13:41 Temperature 97.7 F Pulse Rate 67 Respiratory Rate 16 Blood Pressure 125/72 Pulse Oximetry 98 Oxygen Delivery Method Room Air MDM - Extremity Injury (Upper) <NETO Orellana - Last Filed: 05/21/22 17:16> Differential Diagnosis Differential diagnosis: Likely other (Right wrist sprain) Imaging Data Extremity x-ray #1: Radiologist's Impression: [address] [address] XRay Report Signed Patient: Filipe Bernard MR#: [id number] : 1970 Acct:[id number] Age/Sex: 52 / F Date of Service: 05/21/22 Loc: ED Accession Number: [id number] ?? Procedure: XR wrist RT min 3V Ordering Provider: Domingo Lorenz MD PROCEDURE:? XR WRIST RT MIN 3V ? INDICATIONS: fall ? TECHNIQUE:? 4 views of the wrist were acquired.? ? COMPARISON:? [facility], , WRIST MINIMUM 3 VIEWS LEFT, 04/25/2013, 11:38. ? FINDINGS:? ? Bones:? No fractures or dislocations.? No suspicious bony lesions.? ? Scaphoid view:? Unremarkable ? Soft tissues:? No suspicious soft tissue calcifications.? ? IMPRESSION:? Unremarkable right wrist radiographs ? ? ? Approved by: Carlos A Pisano M.D. on 05/21/2022 at 14:10? [facility] Narrative Medical decision making narrative: 52-year-old female that presents emergency department with right wrist pain. X-ray was negative. We will treat with wrist splint, Tylenol for pain due to trazodone usage, and rice. Discussed return precautions and plan of care with patient and mother, who were agreeable with course of action. Discharge Plan Departure Patient Disposition: Home Clinical Impression: Sprain and strain of wrist Instructions: DI for Wrist Sprain Activity Restrictions/Additional Instructions: *You have been diagnosed with a right wrist sprain. Your x-ray was negative. We have fitted for a wrist brace, that I recommend she wear as much as possible, especially at night. Rest (modified activity), along with ice, compression wrap/splint-immobilize as directed and elevation above heart. Tylenol for discomfort. Please follow-up with your family doctor next week. *What to do: *Please continue to take your regular medications as directed. [ ] New medication prescriptions sent to your pharmacy: [ ] [ ] New medication written as a paper prescription [ x] No new medications given *Please follow up with your primary care provider in 2-3 days, call for an appointment. Let them know you were seen in the Emergency Department and that we ask that you be seen in follow up. We will electronically transmit a record of today's note if your PCP is in our system *If you do not have a primary care provider please contact the [facility] Resource line at [phone]. They will ask some questions about your medical history and help get you set up with a doctor in the community. ? Return to ER if you should have any new, worsening or concerning symptoms, such as worsening pain, severe headache, confusion, chest pain, difficulty breathing, fever greater than 101 F, shaking chills, persistent vomiting to the point that you cannot drink fluids, or other new or worsening symptoms. Prescriptions: No Action estradiol [Estrace] 1 MG tablet 1 mg PO QDAY Qty: 0 prazosin 1 MG capsule 25 mg PO HS Qty: 0 duloxetine 60 MG capsule,delayed release(DR/EC) 60 mg PO QDAY Qty: 0 mirtazapine 15 MG tablet 7.5 mg PO HSP PRN (Reason: UNKNOWN) Qty: 0 Label Comments: PT STATES NO LONGER TAKING ondansetron HCl [Zofran] 4 MG tablet 4 mg PO Q4HP PRNQty: 20 0RF tramadol 50 MG tablet 50 mg PO Q6HP PRNQty: 20 0RF lorazepam 1 MG tablet 1 mg PO TID PRN (Reason: Anxiety) Qty: 0 hydroxyzine HCl 50 MG tablet See Rx Instructions .ROUTE .COMPLEX PRN (Reason: Pain (Scale Score 1-3)) Qty: 0 Label Comments: 50 MG AM, 50 MG PM 100MG AT HS Rx Instructions: 50 - 100 mg orally as needed bupropion HCl 200 mg PO DAILY omeprazole 40 mg capsule,delayed release(DR/EC) 40 mg PO DAILY levothyroxine 50 mcg PO QAM trazodone See Rx Instructions .ROUTE .COMPLEX Rx Instructions: 100 mg orally QHS ondansetron [Zofran ODT] 4 mg tablet,disintegrating 4 mg PO .prn PRN (Reason: Nausea And Vomiting) epinephrine [EpiPen 2-Jose G] 0.3 mg/0.3 mL auto-injector 0.3 mg IM Q5-15M PRN (Reason: anaphylaxis) Qty: 2 0RF Rx Instructions: do not exceed 3 doses per episode meloxicam [Mobic] 7.5 mg tablet 7.5 mg PO BID Qty: 20 0RF ondansetron HCl [Zofran] 4 mg tablet 4 mg PO Q6H PRN (Reason: nausea and vomiting) Qty: 10 0RF Referrals: Bhavna Ramos MD [Primary Care Provider] - Visit Report Forms: Patient Portal/API <Domingo Lorenz MD - Last Filed: 05/22/22 08:13> Cosign ED Attending Cosignature Attestation: I was immediately available in the department for consultation. ?This documentation has been reviewed and I agree with assessment and plan. Supervised by Domingo oLrenz MD
== END 2022-05-21 17:25 | disposition home or self-care (01) ==
PROVIDERS: Emergency Provider Registered Nurse; PCP Family Medicine
DX: S63.501A Unspecified sprain of right wrist, initial encounter (principal); S66.911A Strain of unspecified muscle, fascia and tendon at wrist and hand level, right hand, initial encounter; W19.XXXA Unspecified fall, initial encounter
CPT/HCPCS: 73110; 99283

== ENCOUNTER 2023-03-18 15:42 | Emergency (ER) | payer OTHER, MEDICAID, SELFPAY ==
[2023-03-18 15:47] VITALS: BP 125/68; PULSE 79; RESP 22; TEMP 36.6; O2SAT 99; BMI 26.5
--- NOTE | 2023-03-18 15:57 | DI.RAD.S_ITS ---
PROCEDURE: XR KNEE RT 3V INDICATIONS: injury TECHNIQUE: 3 views of the knee were acquired. COMPARISON: [facility], CR, KNEE MIN 4VW (RT), 05/12/2014, 16:37. [facility], RG, XR KNEE 2V RT, 07/01/2003, 9:20. [facility], CR, KNEE 3V LEFT, 10/28/2012, 21:45. FINDINGS: Bones: No fractures or dislocations. No suspicious bony lesions. There is a presumed bone island seen within the medial proximal tibia, as before. Soft tissues: No significant joint effusion. No suspicious soft tissue calcifications. IMPRESSION: No significant plain film abnormality is seen. If it would be helpful for clinical management decision making, please consider a dedicated, scheduled knee MRI for further evaluation (assuming that there is no contraindication). Dictated by: Lukasz Aguilar M.D. on 03/18/2023 at 15:39 Approved by: Lukasz Aguilar M.D. on 03/18/2023 at 15:41
[2023-03-18 16:37] VITALS: BP 128/68; PULSE 78; RESP 20; O2SAT 100
--- NOTE | 2023-03-18 16:52 | ED.LOWEXIN ---
HPI - Extremity Injury (Lower) <Bhavna Tirado PA-C - Last Filed: 03/18/23 17:38> General Chief Complaint: Extremity Injury, Lower Stated Complaint: Fall yesterday, R knee pain/swollen/purple Time Seen by Provider: 03/18/23 16:30 Source: patient Mode of arrival: Ambulatory History of Present Illness HPI Narrative: This is a 53-year-old woman with a history of fibromyalgia, chronic pain, who presents with concern for right knee pain and bruising with difficulty walking on it. Patient states that she had a fall yesterday at home when she tripped over a baby gate. She actually saw her primary care provider for this yesterday morning but at that time was more concerned about her shoulder which they felt might have a rotator cuff injury, she was referred to physical therapy for this. She states she went home and stayed in a recliner for most of the rest of the day and this morning when she got up she had severe knee pain on the right. She did injure her knee yesterday in the fall but yesterday was not bothering her very much. She states the pain is mostly in the front and inside of her knee near the kneecap it is also just below the kneecap. She did not take her regular tramadol today yet. She has been bearing weight on it but states it has been painful to do so. She states she has crutches at home and also has a walker and a wheelchair at home and can use these to avoid weight-bearing on her knee. She denies numbness or tingling of the affected lower extremity. Related Data Home Medications Medication Instructions Recorded Confirmed estradiol 1 mg tablet (Estrace) 1 mg PO QDAY ##0 10/28/12 05/29/18 duloxetine 60 mg capsule,delayed 60 mg PO QDAY ##0 10/10/17 05/29/18 release mirtazapine 15 mg tablet 7.5 mg PO HSP PRN UNKNOWN ##0 10/10/17 05/29/18 prazosin 1 mg capsule 25 mg PO HS ##0 10/10/17 05/29/18 hydroxyzine HCl 50 mg tablet See Rx Instructions .Route 11/11/17 05/29/18 .COMPLEX PRN Pain (Scale Score 1-3) ##0 lorazepam 1 mg tablet 1 mg PO TID PRN Anxiety ##0 11/11/17 05/29/18 bupropion HCl 200 mg PO DAILY 05/24/18 05/29/18 levothyroxine 50 mcg PO QAM 05/24/18 05/29/18 omeprazole 40 mg capsule,delayed 40 mg PO DAILY 05/24/18 05/29/18 release ondansetron 4 mg disintegrating 4 mg PO .prn PRN Nausea And 05/24/18 05/29/18 tablet (Zofran ODT) Vomiting trazodone See Rx Instructions .Route 05/24/18 05/29/18 .COMPLEX SLEEP Previous Rx's Medication Instructions Recorded ondansetron HCl 4 mg tablet 4 mg PO Q4HP PRN #20 tabs 10/10/17 (Zofran) tramadol 50 mg tablet 50 mg PO Q6HP PRN #20 tabs 10/10/17 meloxicam 7.5 mg tablet (Mobic) 7.5 mg PO BID #20 tabs 12/07/20 ondansetron HCl 4 mg tablet 4 mg PO Q6H PRN nausea and 12/07/20 (Zofran) vomiting #10 tabs epinephrine 0.3 mg/0.3 mL 0.3 mg (0.3 mL) IM Q5-15M PRN 07/15/21 injection, auto-injector (EpiPen anaphylaxis #2 ea 2-Jose G) Allergies Allergy/AdvReac Type Severity Reaction Status Date / Time codeine [CODEINE] Allergy Severe ITCHY / Verified 05/21/22 13:47 RASH latex [LATEX] Allergy Mild HIVES Verified 05/21/22 13:47 haloperidol [HALOPERIDOL] AdvReac Severe DYSTONIA Verified 05/21/22 13:47 methocarbamol [From ROBAXIN] AdvReac Severe DYSTONIA Verified 05/21/22 13:47 prochlorperazine AdvReac Severe DYSTONIA Verified 05/21/22 13:47 [PROCHLORPERAZINE] gabapentin AdvReac Agitated Verified 03/18/23 15:54 Review of Systems <Bhavna Tirado PA-C - Last Filed: 03/18/23 17:38> Review of Systems Narrative: See HPI Patient History <Bhavna Tirado PA-C - Last Filed: 03/18/23 17:38> Medical History Anxiety Fibromyalgia PTSD (post-traumatic stress disorder) Surgical History H/O: hysterectomy Family History Father Cancer Social History household members: family and other occupational status: disabled Smoking Status: Current every day smoker alcohol intake: never substance use type: does not use Smoking Status: Current every day smoker tobacco type: cigarettes alcohol intake frequency: 0-2 drinks per day Substance Use Type: marijuana Exam <Bhavna Tirado PA-C - Last Filed: 03/18/23 17:38> Narrative Exam Narrative: GENERAL: 53 year old patient appears stated age. Well-developed patient, in mild distress. HEAD: Atraumatic. Normocephalic. EYES: Pupils equal round and reactive. Extraocular motions intact. No scleral icterus. No injection or drainage. ENT: Nose without bleeding, purulent drainage. Throat without erythema, tonsillar hypertrophy or exudate. Airway patent. NECK: Trachea midline. CARDIOVASCULAR: Regular rate and rhythm without murmurs, gallops, or rubs. RESPIRATORY: Clear to auscultation. Breath sounds equal bilaterally. No wheezes, rales, or rhonchi. GASTROINTESTINAL: Abdomen nondistended. EXTREMITIES: There is appreciable mild bruising present that is purplish blue on the anterior aspect of the knee inferior and medial to the patella. There is mild swelling present associated with the bruised areas. Patient is quite tender with palpation of the soft tissues inferior and medial to the patella. There is slight medial joint line tenderness, no lateral joint line tenderness. No increased pain with passive flexion of the knee, anterior and posterior drawer are negative. She has some increased pain with Apley grind. Pedal pulses are intact. No other edema or joint tenderness noted. NEURO: AOx3. SKIN: No rash or erythema of visible areas Initial Vital Signs Initial Vital Signs: Vital Signs Temperature 97.8 F 03/18/23 15:47 Pulse Rate 79 03/18/23 15:47 Respiratory Rate 22 03/18/23 15:47 Blood Pressure 125/68 03/18/23 15:47 Pulse Oximetry 99 03/18/23 15:47 Oxygen Delivery Method Room Air 03/18/23 15:47 <Ana Liang DO - Last Filed: 03/24/23 19:49> Initial Vital Signs Initial Vital Signs: Vital Signs Temperature 97.8 F 03/18/23 15:47 Pulse Rate 79 03/18/23 15:47 Respiratory Rate 22 03/18/23 15:47 Blood Pressure 125/68 03/18/23 15:47 Pulse Oximetry 99 03/18/23 15:47 Oxygen Delivery Method Room Air 03/18/23 15:47 Course <Bhavna Tirado PA-C - Last Filed: 03/18/23 17:38> Orders Ordered: Discontinued Medications Tramadol HCl (Tramadol 50 Mg Tablet) 50 mg PO NOW ONE Stop: 03/18/23 17:05 Last Admin: 03/18/23 17:14 Dose: 50 mg Documented By: SB Vital Signs Vital signs: Vital Signs - 8 hr 03/18/23 15:47 03/18/23 16:37 03/18/23 17:00 Temperature 97.8 F Pulse Rate 79 78 Respiratory Rate 22 20 Blood Pressure 125/68 128/68 130/71 Pulse Oximetry 99 100 Oxygen Delivery Method Room Air Room Air 03/18/23 17:00 03/18/23 17:27 03/18/23 17:27 Temperature Pulse Rate 86 81 Respiratory Rate Blood Pressure 141/70 H Pulse Oximetry 100 100 Oxygen Delivery Method Room Air Room Air <DO Patti Saba Last Filed: 03/24/23 19:49> Orders Ordered: Discontinued Medications Tramadol HCl (Tramadol 50 Mg Tablet) 50 mg PO NOW ONE Stop: 03/18/23 17:05 Last Admin: 03/18/23 17:14 Dose: 50 mg Documented By: SB Vital Signs Vital signs: Vital Signs - 8 hr 03/18/23 15:47 03/18/23 16:37 03/18/23 17:00 Temperature 97.8 F Pulse Rate 79 78 Respiratory Rate 22 20 Blood Pressure 125/68 128/68 130/71 Pulse Oximetry 99 100 Oxygen Delivery Method Room Air Room Air 03/18/23 17:00 03/18/23 17:27 03/18/23 17:27 Temperature Pulse Rate 86 81 Respiratory Rate Blood Pressure 141/70 H Pulse Oximetry 100 100 Oxygen Delivery Method Room Air Room Air MDM - Extremity Injury (Lower) <Bhavna Tirado PA-C - Last Filed: 03/18/23 17:38> Differential Diagnosis Differential diagnosis: Likely acute internal derangement of knee and other (Knee strain, knee sprain) Medical Records Attestation: I reviewed the patient's medical records. Imaging Data Extremity x-ray #1: My Impression: Agree with radiology interpretation Radiologist's Impression: [address] [address] XRay Report Signed Patient: Filipe Bernard MR#: [id number] : 1970 Acct:[id number] Age/Sex: 53 / F Date of Service: 03/18/23 Loc: ED Accession Number: [id number] ?? Procedure: XR knee RT 3V Ordering Provider: Ana Liang D.O. PROCEDURE:? XR KNEE RT 3V ? INDICATIONS:? injury ? TECHNIQUE:? 3 views of the knee were acquired.? ? COMPARISON:? [facility], CR, KNEE MIN 4VW (RT), 05/12/2014, 16:37.? [facility], , XR KNEE 2V RT, 07/01/2003, 9:20.? [facility], [facility], KNEE 3V LEFT, 10/28/2012, 21:45. ? FINDINGS:? ? Bones:? No fractures or dislocations.? No suspicious bony lesions.? There is a presumed bone island seen within the medial proximal tibia, as before. ? Soft tissues:? No significant joint effusion.? No suspicious soft tissue calcifications.? IMPRESSION:? No significant plain film abnormality is seen. ? If it would be helpful for clinical management decision making, please consider a dedicated, scheduled knee MRI for further evaluation (assuming that there is no contraindication).? ? ? Dictated by: Lukasz Aguilar M.D. on 03/18/2023 at 15:39 ? ? Approved by: Lukasz Aguilar M.D. on 03/18/2023 at 15:41?? Treatment and disposition Shared decision making:: Shared decision-making was used to determine the patient's plan of care in ED and plan for outpatient follow-up. MDM Narrative Medical decision making narrative: This is a 53-year-old woman with history of fibromyalgia and chronic pain who presents with concern for right knee pain after she sustained a fall yesterday morning. Actually did not have significant pain yesterday after the fall but this morning woke up with much worse right knee pain. Was seen by her primary care provider yesterday for the fall and concern for shoulder injury. Patient's knee exam does not suggest ligamentous injury, suspect muscle strain and soft tissue injury. Possibly mild sprain. Patient is placed in a knee brace, she already has crutches at home as well as a walker and wheelchair that she can use to stay off of her knee advised to take Tylenol for pain, continue with her tramadol as prescribed. Encouraged to follow up closely with her primary care provider, consider seeing orthopedics. Return precautions provided, follow-up plan discussed, all questions answered. Discharge Plan Departure Patient Disposition: Home Clinical Impression: Sprain and strain of other specified sites of knee and leg Instructions: DI for Knee Sprain Activity Restrictions/Additional Instructions: *You have been diagnosed with knee sprain and strain *What to do: *Please continue to take your regular medications as directed. [ ] New medication prescriptions sent to your pharmacy: [ ] [ ] New medication written as a paper prescription [* ] No new medications given *Please follow up with your primary care provider in 2-3 days, call for an appointment. Let them know you were seen in the Emergency Department and that we ask that you be seen in follow up. We will electronically transmit a record of today's note if your PCP is in our system. You can talk to your primary care provider about getting referred for physical therapy or orthopedics for your knee if you are not having improvement in your symptoms in 7-10 days' time. We placed do in a knee brace today you already have crutches at home so we did not provide those for you at your request. I recommend you take Tylenol for pain you can also take your regular tramadol as prescribed. To the degree possible please try to stay off of your knee and not bear weight on it it is okay to do gentle movement but no intense physical activity for the time being. *If you do not have a primary care provider please contact the [facility] Resource line at [phone]. They will ask some questions about your medical history and help get you set up with a doctor in the community. *Return to Emergency Department if you should have any new, worsening or concerning symptoms, such as [fever greater than 101 F, shaking chills, worsening pain, persistent vomiting or other bothersome symptoms] Prescriptions: No Action estradiol [Estrace] 1 MG tablet 1 mg PO QDAY Qty: 0 prazosin 1 MG capsule 25 mg PO HS Qty: 0 duloxetine 60 MG capsule,delayed release(DR/EC) 60 mg PO QDAY Qty: 0 mirtazapine 15 MG tablet 7.5 mg PO HSP PRN (Reason: UNKNOWN) Qty: 0 Patient Comments: PT STATES NO LONGER TAKING ondansetron HCl [Zofran] 4 MG tablet 4 mg PO Q4HP PRNQty: 20 0RF tramadol 50 MG tablet 50 mg PO Q6HP PRNQty: 20 0RF lorazepam 1 MG tablet 1 mg PO TID PRN (Reason: Anxiety) Qty: 0 hydroxyzine HCl 50 MG tablet See Rx Instructions .ROUTE .COMPLEX PRN (Reason: Pain (Scale Score 1-3)) Qty: 0 Patient Comments: 50 MG AM, 50 MG PM 100MG AT HS Rx Instructions: 50 - 100 mg orally as needed bupropion HCl 200 mg PO DAILY omeprazole 40 mg capsule,delayed release(DR/EC) 40 mg PO DAILY levothyroxine 50 mcg PO QAM trazodone See Rx Instructions .ROUTE .COMPLEX Rx Instructions: 100 mg orally QHS ondansetron [Zofran ODT] 4 mg tablet,disintegrating 4 mg PO .prn PRN (Reason: Nausea And Vomiting) epinephrine [EpiPen 2-Jose G] 0.3 mg/0.3 mL auto-injector 0.3 mg IM Q5-15M PRN (Reason: anaphylaxis) Qty: 2 0RF Rx Instructions: do not exceed 3 doses per episode meloxicam [Mobic] 7.5 mg tablet 7.5 mg PO BID Qty: 20 0RF ondansetron HCl [Zofran] 4 mg tablet 4 mg PO Q6H PRN (Reason: nausea and vomiting) Qty: 10 0RF Referrals: Bhavna Ramos MD [Primary Care Provider] - Stand Alone Forms: Patient Portal/API <Ana Liang DO - Last Filed: 03/24/23 19:49> Cosign ED Attending Cosignature Attestation: I was immediately available in the department for consultation. Documentation has been reviewed.
[2023-03-18 17:00] VITALS: BP 130/71; PULSE 86; O2SAT 100
[2023-03-18] MEDS: TRAMADOL 50 MG TABLET PO (17:14)
[2023-03-18 17:27] VITALS: BP 141/70; PULSE 81; O2SAT 100
== END 2023-03-18 17:34 | disposition home or self-care (01) ==
PROVIDERS: Emergency Provider Student in an Organized Health Care Education/Training Program; PCP Family Medicine
DX: S83.91XA Sprain of unspecified site of right knee, initial encounter (principal); S86.911A Strain of unspecified muscle(s) and tendon(s) at lower leg level, right leg, initial encounter; W18.30XA Fall on same level, unspecified, initial encounter
CPT/HCPCS: 73562; 99283

== ENCOUNTER 2024-04-23 19:38 | Emergency (ER) | payer OTHER, MEDICAID, SELFPAY ==
[2024-04-23 19:49] VITALS: BP 117/79; PULSE 83; RESP 18; TEMP 37.1; O2SAT 98; BMI 24.7
--- NOTE | 2024-04-23 20:03 | ED_ITS ---
HPI - Wound/Laceration General Chief Complaint: Wound/Laceration Stated Complaint: right arm laceration Time Seen by Provider: 04/23/24 19:46 Source: patient Mode of arrival: Ambulatory History of Present Illness HPI narrative: 54-year-old woman with a history of depression was out picking and cleaning out blackberries and caught the right forearm surface and a small bit of barbed wire. There is at approximately 0.5 cm wound with some bruising underneath it. Patient's mother who is developing dementia was dramatically concerned that she was going to exsanguinate weight as the wound was directly over her artery and insisted the patient come in for further evaluation. Of patient is in no significant distress. Bleeding is controlled. Minor scratch with contusion only. Neurovascularly intact and no other wounds appreciated Related Data Home Medications Medication Instructions Recorded Confirmed estradiol 1 mg tablet (Estrace) 1 mg PO QDAY ##0 10/28/12 05/29/18 duloxetine 60 mg capsule,delayed 60 mg PO QDAY ##0 10/10/17 05/29/18 release mirtazapine 15 mg tablet 7.5 mg PO HSP PRN UNKNOWN ##0 10/10/17 05/29/18 prazosin 1 mg capsule 25 mg PO HS ##0 10/10/17 05/29/18 hydroxyzine HCl 50 mg tablet See Rx Instructions .Route 11/11/17 05/29/18 .COMPLEX PRN Pain (Scale Score 1-3) ##0 lorazepam 1 mg tablet 1 mg PO TID PRN Anxiety ##0 11/11/17 05/29/18 bupropion HCl 200 mg PO DAILY 05/24/18 05/29/18 levothyroxine 50 mcg PO QAM 05/24/18 05/29/18 omeprazole 40 mg capsule,delayed 40 mg PO DAILY 05/24/18 05/29/18 release ondansetron 4 mg disintegrating 4 mg PO .prn PRN Nausea And 05/24/18 05/29/18 tablet (Zofran ODT) Vomiting trazodone See Rx Instructions .Route 05/24/18 05/29/18 .COMPLEX SLEEP Previous Rx's Medication Instructions Recorded ondansetron HCl 4 mg tablet 4 mg PO Q4HP PRN #20 tabs 10/10/17 (Zofran) tramadol 50 mg tablet 50 mg PO Q6HP PRN #20 tabs 10/10/17 meloxicam 7.5 mg tablet (Mobic) 7.5 mg PO BID #20 tabs 12/07/20 ondansetron HCl 4 mg tablet 4 mg PO Q6H PRN nausea and 12/07/20 (Zofran) vomiting #10 tabs epinephrine 0.3 mg/0.3 mL 0.3 mg (0.3 mL) IM Q5-15M PRN 07/15/21 injection, auto-injector (EpiPen anaphylaxis #2 ea 2-Jose G) Allergies Allergy/AdvReac Type Severity Reaction Status Date / Time codeine [CODEINE] Allergy Severe ITCHY / Verified 05/21/22 13:47 RASH latex [LATEX] Allergy Mild HIVES Verified 05/21/22 13:47 haloperidol [HALOPERIDOL] AdvReac Severe DYSTONIA Verified 05/21/22 13:47 methocarbamol [From ROBAXIN] AdvReac Severe DYSTONIA Verified 05/21/22 13:47 prochlorperazine AdvReac Severe DYSTONIA Verified 05/21/22 13:47 [PROCHLORPERAZINE] gabapentin AdvReac Agitated Verified 03/18/23 15:54 Review of Systems Review of Systems Narrative: Pertinent positive and negative findings as per HPI Patient History Medical History (Updated 04/23/24 @ 20:08 by Talya Valdez MD) Anxiety PTSD (post-traumatic stress disorder) Fibromyalgia Surgical History H/O: hysterectomy Family History Father Cancer Social History household members: family and other occupational status: disabled Smoking Status: Current every day smoker alcohol intake: never substance use type: does not use Smoking Status: Current every day smoker tobacco type: cigarettes alcohol intake frequency: 0-2 drinks per day Substance Use Type: marijuana Exam Initial Vital Signs Initial Vital Signs: Vital Signs Temperature 98.8 F 04/23/24 19:49 Pulse Rate 83 04/23/24 19:49 Respiratory Rate 18 04/23/24 19:49 Blood Pressure 117/79 06/18/24 19:49 Pulse Oximetry 98 04/23/24 19:49 Oxygen Delivery Method Room Air 04/23/24 19:49 General: Alert appropriate in no acute distress Respiratory: Able to speak in full sentences, no obvious respiratory distress Skin: No obvious rashes, warm and dry Neurologic: Grossly intact no obvious asymmetries or abnormalities Psych: appropriate insight and affect, cooperative Extremity: Right forearm has a half a cm scratch with a area of subcutaneous bl eeding approximately 2 x 2 cm. No obvious hematoma, bleeding has been controlled. Areas otherwise clean and dry Course Vital Signs Vital signs: Vital Signs - 8 hr 04/23/24 19:49 Temperature 98.8 F Pulse Rate 83 Respiratory Rate 18 Blood Pressure 117/79 Pulse Oximetry 98 Oxygen Delivery Method Room Air MDM - Wound/Laceration MDM Narrative Medical decision making narrative: 54-year-old woman with a small scratch to the right forearm with contusion under the scratch after catching the forearm on a bit of barbed wire while she was cleaning out blackberries. She is up-to-date on tetanus. Wound is cleaned with soap and water, bacitracin and Band-Aid are placed. The wound is minor enough that no additional imaging or blood work is required. Reassurance is given. We did review signs and symptoms of infection and reasons to return. Patient is safe for discharge Discharge Plan Departure Patient Disposition: Home Clinical Impression: Abrasion Contusion Qualifiers: Encounter type: initial encounter Contusion area: forearm Instructions: DI for Minor Laceration Activity Restrictions/Additional Instructions: Thank you for coming in today You did have some bleeding under the skin from the small wound today, but this looks like it is going to heal without any additional intervention. You are up-to-date on your tetanus status Please keep the wound clean and use antibiotic and Band-Aid for a couple of days until the skin begins to close the wound. If you notice increasing redness or discharge it would be appropriate to have this re-evaluated. The bruise un derneath is going to turn darker blue than green than yellow and will likely track up and down your forearm. This will be absorbed without any other difficulty If you find that you are getting worse or develop any new symptoms, please feel free to return to the emergency department for further evaluation. Prescriptions: No Action estradiol [Estrace] 1 MG tablet 1 mg PO QDAY Qty: 0 prazosin 1 MG capsule 25 mg PO HS Qty: 0 duloxetine 60 MG capsule,delayed release(DR/EC) 60 mg PO QDAY Qty: 0 mirtazapine 15 MG tablet 7.5 mg PO HSP PRN (Reason: UNKNOWN) Qty: 0 Patient Comments: PT STATES NO LONGER TAKING ondansetron HCl [Zofran] 4 MG tablet 4 mg PO Q4HP PRNQty: 20 0RF tramadol 50 MG tablet 50 mg PO Q6HP PRNQty: 20 0RF lorazepam 1 MG tablet 1 mg PO TID PRN (Reason: Anxiety) Qty: 0 hydroxyzine HCl 50 MG tablet See Rx Instructions .ROUTE .COMPLEX PRN (Reason: Pain (Scale Score 1-3)) Qty: 0 Patient Comments: 50 MG AM, 50 MG PM 100MG AT HS Rx Instructions: 50 - 100 mg orally as needed bupropion HCl 200 mg PO DAILY omeprazole 40 mg capsule,delayed release(DR/EC) 40 mg PO DAILY levothyroxine 50 mcg PO QAM trazodone See Rx Instructions .ROUTE .COMPLEX Rx Instructions: 100 mg orally QHS ondansetron [Zofran ODT] 4 mg tablet,disintegrating 4 mg PO .prn PRN (Reason: Nausea And Vomiting) epinephrine [EpiPen 2-Jose G] 0.3 mg/0.3 mL auto-injector 0.3 mg IM Q5-15M PRN (Reason: anaphylaxis) Qty: 2 0RF Rx Instructions: do not exceed 3 doses per episode meloxicam [Mobic] 7.5 mg tablet 7.5 mg PO BID Qty: 20 0RF ondansetron HCl [Zofran] 4 mg tablet 4 mg PO Q6H PRN (Reason: nausea and vomiting) Qty: 10 0RF Referrals: Bhavna Ramos MD [Primary Care Provider] - Stand Alone Forms: Patient Portal/API
== END 2024-04-23 20:11 | disposition home or self-care (01) ==
PROVIDERS: Emergency Provider Emergency Medicine; PCP Family Medicine
DX: S50.811A Abrasion of right forearm, initial encounter (principal); W45.8XXA Other foreign body or object entering through skin, initial encounter
CPT/HCPCS: 99281; 99282

== ENCOUNTER → 2024-04-25 13:27 | Outpatient (CLI) | payer OTHER, MEDICAID, SELFPAY ==
--- NOTE | 2024-04-25 13:29 | DI.MG.S_ITS ---
BILATERAL DIGITAL DIAGNOSTIC MAMMOGRAM 3D/2D: 04/25/2024 CLINICAL: Intermittent pain in right breast. Comparison is made to exams dated: 03/15/2022 mammogram, 10/20/2020 mammogram, and 12/12/2017 mammogram - [facility]. Both breasts are heterogeneously dense, which may obscure small masses (category c / 51-75% glandular tissue). No significant masses, calcifications, or other findings are seen in either breast. IMPRESSION: INCOMPLETE: NEEDS ADDITIONAL IMAGING EVALUATION There is no abnormality seen in the right breast to correspond with the pain, however, ultrasound is recommended. Based on the Tyrer Cuzick model (a risk assessment model) the patient's lifetime risk is 8.2% and her 10 year risk is 2.2%. According to the ACR, ACS, and NCCN guidelines, an annual breast MRI exam along with mammogram is recommended if the patient's lifetime risk is 20% or greater. This exam was interpreted at Station ID: [id number]. NOTE: For mammograms, a report in lay terms will be sent to the patient. Approximately 15% of breast malignancies will not be visualized mammographically. In the management of a palpable breast mass, a negative mammogram must not discourage biopsy of a clinically suspicious lesion. Electronically Signed By: Travis navarro/cedrick:04/25/2024 14:43:48 ACR BI-RADS Category 0: Incomplete 3340F
--- NOTE | 2024-04-25 13:29 | DI.US.S_ITS ---
LIMITED ULTRASOUND OF RIGHT BREAST: 04/25/2024 CLINICAL: Focal right breast pain. Comparison is made to exams dated: 04/25/2024 mammogram, 03/15/2022 mammogram, 10/20/2020 mammogram, 12/12/2017 mammogram, 06/05/2015 mammogram, and 01/03/2014 mammogram - [facility]. Color flow and real-time ultrasound of the right breast 2 o'clock and 12 o'clock regions were performed. Garay scale images of the real-time examination were reviewed. Incidental benign simple and septated cysts at 12:00. IMPRESSION: NEGATIVE There is no sonographic evidence of malignancy. There is no abnormality seen in the right breast to correspond with the area of clinical concern at 2 o'clock, however, clinical correlation and clinical followup are recommended. Return to annual mammogram screening schedule is recommended. This exam was interpreted at Station ID: [id number]. Electronically Signed By: Travis Douglas M.D. lc/:04/25/2024 14:45:53 letter sent: Clinical Evaluation Ultrasound BI-RADS: 1 Negative
== END ==
PROVIDERS: PCP Family Medicine; Referring Provider Family Medicine; Visit Provider Family Medicine
DX: R92.2 Inconclusive mammogram (principal); N60.01 Solitary cyst of right breast; N64.4 Mastodynia; R92.333 Mammographic heterogeneous density, bilateral breasts
CPT/HCPCS: 76642; 77066; G0279

== ENCOUNTER 2024-06-27 13:50 | Emergency (ER) | payer OTHER, MEDICAID, SELFPAY ==
[2024-06-27 13:55] VITALS: BP 129/96; PULSE 65; RESP 22; TEMP 36.6; O2SAT 100; BMI 24.7
--- NOTE | 2024-06-27 14:10 | ED.HEATRA ---
HPI - Head Injury <Ranjan Srinivasan PA-C - Last Filed: 06/27/24 15:37> General Chief complaint: Head Injury Stated complaint: fell, hit head Time Seen by Provider: 06/27/24 14:02 Source: patient Mode of arrival: Ambulatory History of Present Illness HPI Narrative: This is a 54-year-old female presents emergency department due to A mechanical ground level fall where she fell backwards hitting her head on a door frame as well as her nightstand. She had not lose conscious. This happened about 3 hours ago. She also pitting some neck pain. She states that the pain begins in the left side of her head but radiate to the right side as well as down her left shoulder. She denies any slurred speech, facial drooping, loss of conscious, weakness, or any other concerning signs or symptoms. Related Data Home Medications Medication Instructions Recorded Confirmed estradiol 1 mg tablet (Estrace) 1 mg PO QDAY ##0 10/28/12 05/29/18 duloxetine 60 mg capsule,delayed 60 mg PO QDAY ##0 10/10/17 05/29/18 release mirtazapine 15 mg tablet 7.5 mg PO HSP PRN UNKNOWN ##0 10/10/17 05/29/18 prazosin 1 mg capsule 25 mg PO HS ##0 10/10/17 05/29/18 hydroxyzine HCl 50 mg tablet See Rx Instructions .Route 11/11/17 05/29/18 .COMPLEX PRN Pain (Scale Score 1-3) ##0 lorazepam 1 mg tablet 1 mg PO TID PRN Anxiety ##0 11/11/17 05/29/18 bupropion HCl 200 mg PO DAILY 05/24/18 05/29/18 levothyroxine 50 mcg PO QAM 05/24/18 05/29/18 omeprazole 40 mg capsule,delayed 40 mg PO DAILY 05/24/18 05/29/18 release ondansetron 4 mg disintegrating 4 mg PO .prn PRN Nausea And 05/24/18 05/29/18 tablet (Zofran ODT) Vomiting trazodone See Rx Instructions .Route 05/24/18 05/29/18 .COMPLEX SLEEP Previous Rx's Medication Instructions Recorded ondansetron HCl 4 mg tablet 4 mg PO Q4HP PRN #20 tabs 10/10/17 (Zofran) tramadol 50 mg tablet 50 mg PO Q6HP PRN #20 tabs 10/10/17 meloxicam 7.5 mg tablet (Mobic) 7.5 mg PO BID #20 tabs 12/07/20 ondansetron HCl 4 mg tablet 4 mg PO Q6H PRN nausea and 12/07/20 (Zofran) vomiting #10 tabs epinephrine 0.3 mg/0.3 mL 0.3 mg (0.3 mL) IM Q5-15M PRN 07/15/21 injection, auto-injector (EpiPen anaphylaxis #2 ea 2-Jose G) Allergies Allergy/AdvReac Type Severity Reaction Status Date / Time codeine [CODEINE] Allergy Severe ITCHY / Verified 05/21/22 13:47 RASH latex [LATEX] Allergy Mild HIVES Verified 05/21/22 13:47 haloperidol [HALOPERIDOL] AdvReac Severe DYSTONIA Verified 05/21/22 13:47 methocarbamol [From ROBAXIN] AdvReac Severe DYSTONIA Verified 05/21/22 13:47 prochlorperazine AdvReac Severe DYSTONIA Verified 05/21/22 13:47 [PROCHLORPERAZINE] gabapentin AdvReac Agitated Verified 03/18/23 15:54 Review of Systems <Ranjan Srinivasan PA-C - Last Filed: 06/27/24 15:37> Review of Systems Narrative: GENERAL: Denies chills, fatigue, malaise, fever, sweats. HEENT: Reports head painDenies sinus pain, ear pain, sore throat, difficulty swallowing, dizziness. RESPIRATORY: Denies dyspnea, cough, wheezing, hemoptysis, sputum. CARDIOVASCULAR: Denies chest pain, palpitations, orthopnea, edema, GASTROINTESTINAL: Denies nausea, vomiting, abdominal pain, diarrhea, constipation, melena. : Denies dysuria, frequency, incontinence, hematuria, urinary retention. MUSCULOSKELETAL: reports neck paindenies weakness, joint pain, or bony pain SKIN: Denies rash, skin lesions, or other NEUROLOGIC: Denies weakness, headache, numbness, change in speech, confusion, seizures, incoordination. PSYCHIATRIC: No concerning psychosocial issues. 12 point review of systems is negative except for those stated above Patient History <Ranjan Srinivasan PA-C - Last Filed: 06/27/24 15:37> Medical History (Updated 06/27/24 @ 15:37 by Ranjan Srinivasan PA-C) Anxiety PTSD (post-traumatic stress disorder) Fibromyalgia Surgical History H/O: hysterectomy Family History Father Cancer Social History household members: family and other occupational status: disabled Smoking Status: Current every day smoker alcohol intake: never substance use type: does not use Smoking Status: Current every day smoker tobacco type: vaping alcohol intake frequency: 0-2 drinks per day Substance Use Type: marijuana Exam <Ranjan Srinivasan PA-C - Last Filed: 06/27/24 15:37> Narrative Exam Narrative: GENERAL: Well-developed patient, in mild distress. HEAD: Atraumatic. Normocephalic. tenderness to palpation to the left side of the head EYES: Pupils equal round and reactive. Extraocular motions intact. No scleral icterus. No injection or drainage. ENT: Nose without bleeding, purulent drainage. Throat without erythema, tonsillar hypertrophy or exudate. Airway patent. NECK: Trachea midline. Cervical tenderness to palpation EXTREMITIES: No edema or joint tenderness. NEURO: AOx3. cranial nerves 2-12 intact SKIN: No rash or erythema of visible areas Initial Vital Signs Initial Vital Signs: Vital Signs Temperature 97.9 F 06/27/24 13:55 Pulse Rate 65 06/27/24 13:55 Respiratory Rate 06/27/24 13:55 Blood Pressure 129/96 H 06/27/24 13:55 Pulse Oximetry 100 06/27/24 13:55 Oxygen Delivery Method Room Air 06/27/24 13:55 <Domingo Lorenz MD - Last Filed: 06/27/24 16:09> Initial Vital Signs Initial Vital Signs: Vital Signs Temperature 97.9 F 06/27/24 13:55 Pulse Rate 65 06/27/24 13:55 Respiratory Rate 06/27/24 13:55 Blood Pressure 129/96 H 06/27/24 13:55 Pulse Oximetry 100 06/27/24 13:55 Oxygen Delivery Method Room Air 06/27/24 13:55 Course <Ranjan Srinivasan PA-C - Last Filed: 06/27/24 15:37> Orders Ordered: ED Orders 06/27/24 14:17 CT cervical spine wo con Stat CT head/brain wo con Stat Vital Signs Vital signs: Vital Signs - 8 hr 06/27/24 13:55 06/27/24 15:38 Temperature 97.9 F 98.0 F Pulse Rate 65 70 Respiratory Rate 22 Blood Pressure 129/96 H 123/72 Pulse Oximetry 100 97 Oxygen Delivery Method Room Air Room Air <Domingo Lorenz MD - Last Filed: 06/27/24 16:09> Orders Ordered: ED Orders 06/27/24 14:17 CT cervical spine wo con Stat CT head/brain wo con Stat Vital Signs Vital signs: Vital Signs - 8 hr 06/27/24 13:55 06/27/24 15:38 Temperature 97.9 F 98.0 F Pulse Rate 65 70 Respiratory Rate 22 Blood Pressure 129/96 H 123/72 Pulse Oximetry 100 97 Oxygen Delivery Method Room Air Room Air MDM - Head Injury <Ranjan Srinivasan PA-C - Last Filed: 06/27/24 15:37> Imaging Data CT - cervical spine: Radiologist's Impression: [place] [address] CT Scan Report Signed Patient: Filipe Bernard MR#: [id number] : 1970 Acct:[id number] Age/Sex: 54 / F Date of Service: 06/27/24 Loc: ED Accession Number: [id number] Procedure: CT cervical spine wo con Ordering Provider: Ranjan Srinivasan PA-C PROCEDURE: CT CERVICAL SPINE WO CON INDICATIONS: Midline TTP after fall TECHNIQUE: Noncontrast 3 mm thick sections acquired from the skull base to the T4 level. Sagittal and coronal reformats were then constructed. For radiation dose reduction, the following was used: automated exposure control, adjustment of mA and/or kV according to patient size. COMPARISON: None. FINDINGS: Image quality: Excellent. Bones: No fractures or dislocations. Visualized superior ribs are intact. Cervical spondylosis. Disc bulges at C4-C5, C5-C6, and C6-C7, likely chronic. Soft tissues: Prevertebral soft tissues are normal in thickness. No paravertebral hematomas. No apical pneumothoraces. IMPRESSION: 1. No acute cervical fracture or dislocation. Dictated by: Jaleel Hyatt M.D. on 06/27/2024 at 15:25 Approved by: Jaleel Hyatt M.D. on 06/27/2024 at 15:27 CT scan - head: Radiologist's Impression: [address] [address] [address] Scan Report Signed Patient: Filipe Bernard MR#: [id number] : 1970 Acct:[id number] Age/Sex: 54 / F Date of Service: 06/27/24 Loc: ED Accession Number: [id number] Procedure: CT head/brain wo con Ordering Provider: Ranjan Srinivasan PA-C PROCEDURE: CT HEAD/BRAIN WO CON INDICATIONS: Head injury TECHNIQUE: Noncontrast 4.5 mm thick angled axial sections acquired from the foramen magnum to the vertex, with coronal and sagittal reformats. For radiation dose reduction, the following was used: automated exposure control, adjustment of mA and/or kV according to patient size. COMPARISON: None. FINDINGS: Image quality: Diagnostic. CSF spaces: Basal cisterns are patent. No extra-axial fluid collections. Ventricles are normal in size and shape. Brain: No midline shift. No intracranial masses or hemorrhage. Garay-white matter interface is normal. Skull and face: Calvarium and visualized facial bones are intact, without suspicious lesions. Sinuses: Visualized sinuses and mastoids are clear. IMPRESSION: No acute intracranial pathology. Dictated by: Jlaeel Hyatt M.D. on 06/27/2024 at 15:25 Approved by: Jaleel Hyatt M.D. on 06/27/2024 at 15:25 [facility] Narrative Medical decision making narrative: ED course: this is a 54-year-old female presenting to the emergency department due to mechanical ground level fall. Shared decision-making utilized and CT head was ordered as the patient was tearful and reported significant pain andinjury. She also midline tenderness to palpation over cervical spine. CC: headache Complicating co-morbidities: history of fibromyalgia Data collected from: Previous notes Medical records reviewed: Patient was seen about 2 months ago due to tripping and landing on her right forearm while picking some blackberries. History of depression. History of fibromyalgia, PTSD, anxiety. Tetanus was up-to-date. Differential considered, but not limited to: intracranial bleed, cervical fracture, soft tissue injury Exam documented above, pertinent findings include: cranial nerves 2-12 intact Lab Test results independently reviewed as above. Pertinent findings: none obtained Imaging studies independently reviewed: CTs unremarkable Scores Used: None MIPS Elements: None Consultations: None Treatments: none Re-evaluations: none Discussion: Discussed plan with the patient was comfortable with the plan Diagnosis: head contusion Disposition: see below, along with detailed discharge instructions that have been reviewed with patient as well as indications for ED re-evaluation and additional outpatient follow up Discharge Plan Departure Patient Disposition: Home Clinical Impression: Contusion of head Activity Restrictions/Additional Instructions: Thank you for coming to the [facility] Emergency Department today. as we discussed your head and neck CTs were unremarkable. There was no evidence of any kind of intracranial bleed or fracture. Please use ibuprofen and Tylenol as needed for the pain. Please return to the emergency department if you develop any Slurred speech, facial drooping, or any other concerning signs or symptoms. I hope you feel better soon. Please follow up with your primary care provider within a week if your symptoms continue. If you do not have a primary care provider please contact the [facility] Resource line at [phone]. They will ask some questions about your medical history and help you get set up with a provider in the community. Prescriptions: No Action estradiol [Estrace] 1 MG tablet 1 mg PO QDAY Qty: 0 prazosin 1 MG capsule 25 mg PO HS Qty: 0 duloxetine 60 MG capsule,delayed release(DR/EC) 60 mg PO QDAY Qty: 0 mirtazapine 15 MG tablet 7.5 mg PO HSP PRN (Reason: UNKNOWN) Qty: 0 Patient Comments: PT STATES NO LONGER TAKING ondansetron HCl [Zofran] 4 MG tablet 4 mg PO Q4HP PRNQty: 20 0RF tramadol 50 MG tablet 50 mg PO Q6HP PRNQty: 20 0RF lorazepam 1 MG tablet 1 mg PO TID PRN (Reason: Anxiety) Qty: 0 hydroxyzine HCl 50 MG tablet See Rx Instructions .ROUTE .COMPLEX PRN (Reason: Pain (Scale Score 1-3)) Qty: 0 Patient Comments: 50 MG AM, 50 MG PM 100MG AT HS Rx Instructions: 50 - 100 mg orally as needed bupropion HCl 200 mg PO DAILY omeprazole 40 mg capsule,delayed release(DR/EC) 40 mg PO DAILY levothyroxine 50 mcg PO QAM trazodone See Rx Instructions .ROUTE .COMPLEX Rx Instructions: 100 mg orally QHS ondansetron [Zofran ODT] 4 mg tablet,disintegrating 4 mg PO .prn PRN (Reason: Nausea And Vomiting) epinephrine [EpiPen 2-Jose G] 0.3 mg/0.3 mL auto-injector 0.3 mg IM Q5-15M PRN (Reason: anaphylaxis) Qty: 2 0RF Rx Instructions: do not exceed 3 doses per episode meloxicam [Mobic] 7.5 mg tablet 7.5 mg PO BID Qty: 20 0RF ondansetron HCl [Zofran] 4 mg tablet 4 mg PO Q6H PRN (Reason: nausea and vomiting) Qty: 10 0RF Referrals: Bhavna Ramos MD [Primary Care Provider] - Stand Alone Forms: Patient Portal/API ED Sign-out <Domingo Lorenz MD - Last Filed: 06/27/24 16:09> [facility] I was immediately available in the department for consultation. ?This documentation has been reviewed and I agree with assessment and plan. Supervised by Domingo Lorenz MD
--- NOTE | 2024-06-27 14:17 | DI.CT.S_ITS ---
PROCEDURE: CT CERVICAL SPINE WO CON INDICATIONS: Midline TTP after fall TECHNIQUE: Noncontrast 3 mm thick sections acquired from the skull base to the T4 level. Sagittal and coronal reformats were then constructed. For radiation dose reduction, the following was used: automated exposure control, adjustment of mA and/or kV according to patient size. COMPARISON: None. FINDINGS: Image quality: Excellent. Bones: No fractures or dislocations. Visualized superior ribs are intact. Cervical spondylosis. Disc bulges at C4-C5, C5-C6, and C6-C7, likely chronic. Soft tissues: Prevertebral soft tissues are normal in thickness. No paravertebral hematomas. No apical pneumothoraces. IMPRESSION: 1. No acute cervical fracture or dislocation. Dictated by: Jaleel Hyatt M.D. on 06/27/2024 at 15:25 Approved by: Jaleel Hyatt M.D. on 06/27/2024 at 15:27
--- NOTE | 2024-06-27 14:17 | DI.CT.S_ITS ---
PROCEDURE: CT HEAD/BRAIN WO CON INDICATIONS: Head injury TECHNIQUE: Noncontrast 4.5 mm thick angled axial sections acquired from the foramen magnum to the vertex, with coronal and sagittal reformats. For radiation dose reduction, the following was used: automated exposure control, adjustment of mA and/or kV according to patient size. COMPARISON: None. FINDINGS: Image quality: Diagnostic. CSF spaces: Basal cisterns are patent. No extra-axial fluid collections. Ventricles are normal in size and shape. Brain: No midline shift. No intracranial masses or hemorrhage. Garay-white matter interface is normal. Skull and face: Calvarium and visualized facial bones are intact, without suspicious lesions. Sinuses: Visualized sinuses and mastoids are clear. IMPRESSION: No acute intracranial pathology. Dictated by: Jaleel Hyatt M.D. on 06/27/2024 at 15:25 Approved by: Jaleel Hyatt M.D. on 06/27/2024 at 15:25
[2024-06-27 15:38] VITALS: BP 123/72; PULSE 70; TEMP 36.7; O2SAT 97
== END 2024-06-27 15:38 | disposition home or self-care (01) ==
PROVIDERS: Emergency Provider Physician Assistant Medical; PCP Family Medicine
DX: S00.93XA Contusion of unspecified part of head, initial encounter (principal); M54.2 Cervicalgia; W18.09XA Striking against other object with subsequent fall, initial encounter
CPT/HCPCS: 70450; 72125; 99281; 99284

== ENCOUNTER → 2024-09-11 17:03 | Outpatient (CLI) | payer OTHER, MEDICAID, SELFPAY ==
--- NOTE | 2024-09-11 17:09 | DI.RAD.S_ITS ---
PROCEDURE: XR LUMBAR SPINE 2-3V INDICATIONS: HIP PAIN TECHNIQUE: 3 views of the lumbar spine were acquired. COMPARISON: [facility], , L-SPINE 2-3 VIEWS, 02/09/2016, 14:31. FINDINGS: Lumbar spine curvature and alignment: Normal. Bones: There are no osseous abnormalities. Disc spaces: Moderate L5-S1 degenerative disc and facet disease noted. Soft tissues: No soft tissue swelling, calcification or mass. IMPRESSION: Moderate L5-S1 degenerative disc facet disease Dictated by: Maciej Maki M.D. on 09/12/2024 at 8:51 Approved by: Maciej Maki M.D. on 09/12/2024 at 8:52
--- NOTE | 2024-09-11 17:09 | DI.RAD.S_ITS ---
PROCEDURE: XR HIP W PEL IF DONE LT 2V INDICATIONS: HIP PAIN TECHNIQUE: Two views of the hip were acquired. COMPARISON: [facility], CR, [id number] W PEL IF PERFORMED, 09/12/2016, 22:58. FINDINGS: Bones: There are no osseous abnormalities. SI and hip joints: Normal in width and alignment without arthritic change Soft tissues: No soft tissue swelling, calcification or mass. IMPRESSION: Normal pelvis Dictated by: Maciej Maki M.D. on 09/12/2024 at 8:38 Approved by: Maciej Maki M.D. on 09/12/2024 at 8:39
[2024-09-11 17:35] LABS: Alanine Aminotransferase 23 IU/L (<35); Albumin 4.9 g/dL (3.5-5.0); Albumin Globulin Ratio 1.5 (1.0-2.8); Alkaline Phosphatase 63 U/L (38-126); Aspartate Aminotransferase 30 IU/L (14-36); BUN Creatinine Ratio 10.9 (6-22); Bilirubin Total 0.5 mg/dL (0.2-1.3); Blood Urea Nitrogen 15 mg/dL (7-17); Calcium 9.6 mg/dL (8.4-10.2); Carbon Dioxide 26 mmol/L (22-32); Chloride 102 mmol/L (98-107); Estimated Glomerular Filt Rate 46 mL/min (>60); Globulin 3.2 g/dL (1.7-4.1); Glucose 77 mg/dL (70-100); HEMOLYSIS < 15 (0-50); Potassium 4.1 mmol/L (3.4-5.1); Sodium 136 mmol/L (137-145); Total Protein 8.1 g/dL (6.3-8.2)
[2024-09-11 17:37] LABS: Add Manual Diff / Slide Review NO; Basophils Absolute Auto 100 /uL (0-100); Eosinophils Absolute Auto 100 /uL (0-450); Eosinophils Percent Auto 1.7 % (2-4); Hematocrit 38.1 % (36-46); Lymphocytes Absolute Auto 2200 /uL (1100-4500); Lymphocytes Percent Auto 35.2 % (25-40); Mean Corpuscular HGB Conc 34.1 % (30-36); Mean Corpuscular Hemoglobin 31.2 PG (26-34); Mean Corpuscular Volume 91.5 fL (80-100); Monocytes Absolute Auto 400 /uL (0-900); Monocytes Percent Auto 6.7 % (3-14); Neutrophils Absolute Auto 3500 /uL (1500-7000); Neutrophils Percent Auto 55.4 % (50-75); Platelet Count 402 X10^3/uL (150-400); Red Blood Cell Count 4.17 X10^6/uL (4.0-5.2); Red Cell Distribution Width 13.6 % (11.6-14.8); White Blood Cell Count 6.3 X10^3/uL (4.5-11.0)
[2024-09-12 03:26] LABS: Thyroid Stimulating Hormone 178 uIU/mL (0.47-4.68)
[2024-09-12 04:21] LABS: Free T4, Direct Thyroxine 0.15 ng/dL (0.78-2.19)
== END ==
PROVIDERS: PCP Family Medicine; Referring Provider Family Medicine; Visit Provider Family Medicine
DX: M25.552 Pain in left hip (principal); M54.50 Low back pain, unspecified; M25.551 Pain in right hip; F41.9 Anxiety disorder, unspecified; G89.4 Chronic pain syndrome; F32.A Depression, unspecified; F51.01 Primary insomnia; E03.9 Hypothyroidism, unspecified; M51.379 Other intervertebral disc degeneration, lumbosacral region without mention of lumbar back pain or lower extremity pain
CPT/HCPCS: 36415; 72100; 73502; 80053; 84439; 84443; 85025

== ENCOUNTER 2025-02-05 14:15 | Emergency (ER) | payer OTHER, SELFPAY ==
[2025-02-05 14:29] VITALS: BP 116/59; PULSE 85; RESP 16; TEMP 36.8; O2SAT 97; BMI 27.4
[2025-02-05 15:03] LABS: Add Manual Diff / Slide Review NO; Basophils Absolute Auto 100 /uL (0-100); Basophils Percent Auto 1.1 % (0-2); Eosinophils Absolute Auto 200 /uL (0-450); Eosinophils Percent Auto 3.2 % (2-4); Hematocrit 34.9 % (36-46); Lymphocytes Absolute Auto 1300 /uL (1100-4500); Lymphocytes Percent Auto 26.1 % (25-40); Mean Corpuscular HGB Conc 34.5 % (30-36); Mean Corpuscular Hemoglobin 31.1 PG (26-34); Mean Corpuscular Volume 90.2 fL (80-100); Monocytes Absolute Auto 300 /uL (0-900); Neutrophils Absolute Auto 3100 /uL (1500-7000); Neutrophils Percent Auto 62.6 % (50-75); Platelet Count 311 X10^3/uL (150-400); Red Blood Cell Count 3.88 X10^6/uL (4.0-5.2); Red Cell Distribution Width 13.3 % (11.6-14.8); White Blood Cell Count 4.9 X10^3/uL (4.5-11.0)
--- NOTE | 2025-02-05 15:08 | EKG_ITS ---
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
--- NOTE | 2025-02-05 15:13 | ED_ITS ---
HPI - Abdominal Pain <Josephine Hines PA-C - Last Filed: 02/05/25 19:45> General Chief Complaint: Abdominal Pain Stated Complaint: Lower rt quadrant pain Time Seen by Provider: 02/05/25 15:11 Source: patient Mode of arrival: Ambulatory History of Present Illness HPI narrative: Ms. Bernard is a pleasant 54-year-old female with a reported past medical history of fibromyalgia, anxiety/PTSD, total hysterectomy, prior ureterolithiasis who presents to the emergency department for right lower quadrant abdominal pain x5 days. Patient denies any precipitating events. Describes pain as a stabbing, burning pain in the right lower quadrant of the abdomen that radiates directly through to the back. She denies any nausea, vomiting, diarrhea, constipation, dysuria, hematuria, fever, chills. States pain does not feel similar to prior kidney stones. She takes tramadol for her fibromyalgia which has not improved this pain at all. No medications prior to arrival. Related Data Home Medications Medication Instructions Recorded Confirmed estradiol 1 mg tablet (Estrace) 1 mg PO QDAY ##0 10/28/12 05/29/18 duloxetine 60 mg capsule,delayed 60 mg PO QDAY ##0 10/10/17 05/29/18 release mirtazapine 15 mg tablet 7.5 mg PO HSP PRN UNKNOWN ##0 10/10/17 05/29/18 prazosin 1 mg capsule 25 mg PO HS ##0 10/10/17 05/29/18 hydroxyzine HCl 50 mg tablet See Rx Instructions .Route 11/11/17 05/29/18 .COMPLEX PRN Pain (Scale Score 1-3) ##0 lorazepam 1 mg tablet 1 mg PO TID PRN Anxiety ##0 11/11/17 05/29/18 bupropion HCl 200 mg PO DAILY 05/24/18 05/29/18 levothyroxine 50 mcg PO QAM 05/24/18 05/29/18 omeprazole 40 mg capsule,delayed 40 mg PO DAILY 05/24/18 05/29/18 release ondansetron 4 mg disintegrating 4 mg PO .prn PRN Nausea And 05/24/18 05/29/18 tablet (Zofran ODT) Vomiting trazodone See Rx Instructions .Route 05/24/18 05/29/18 .COMPLEX SLEEP Previous Rx's Medication Instructions Recorded ondansetron HCl 4 mg tablet 4 mg PO Q4HP PRN #20 tabs 10/10/17 (Zofran) tramadol 50 mg tablet 50 mg PO Q6HP PRN #20 tabs 10/10/17 meloxicam 7.5 mg tablet (Mobic) 7.5 mg PO BID #20 tabs 12/07/20 ondansetron HCl 4 mg tablet 4 mg PO Q6H PRN nausea and 12/07/20 (Zofran) vomiting #10 tabs epinephrine 0.3 mg/0.3 mL 0.3 mg (0.3 mL) IM Q5-15M PRN 07/15/21 injection, auto-injector (EpiPen anaphylaxis #2 ea 2-Jose G) acetaminophen 500 mg capsule 1,000 mg (2 x 500 mg) PO Q8HR PRN 02/05/25 pain #30 caps ondansetron 4 mg disintegrating 4 mg PO Q8H PRN nausea and 02/05/25 tablet vomiting #14 tabs Allergies Allergy/AdvReac Type Severity Reaction Status Date / Time codeine [CODEINE] Allergy Severe ITCHY / Verified 05/21/22 13:47 RASH latex [LATEX] Allergy Mild HIVES Verified 05/21/22 13:47 haloperidol [HALOPERIDOL] AdvReac Severe DYSTONIA Verified 05/21/22 13:47 methocarbamol [From ROBAXIN] AdvReac Severe DYSTONIA Verified 05/21/22 13:47 prochlorperazine AdvReac Severe DYSTONIA Verified 05/21/22 13:47 [PROCHLORPERAZINE] gabapentin AdvReac Agitated Verified 03/18/23 15:54 Review of Systems <Josephine Hines PA-C - Last Filed: 02/05/25 19:45> Review of Systems ROS Unobtainable: All systems reviewed & are unremarkable except as noted in HPI and below Patient History <Josephine Hines PA-C - Last Filed: 02/05/25 19:45> Medical History (Updated 02/05/25 @ 17:20 by Josephine Hines PA-C) Anxiety PTSD (post-traumatic stress disorder) Fibromyalgia Surgical History H/O: hysterectomy Family History Father Cancer Social History household members: family and other occupational status: disabled Smoking Status: Current every day smoker alcohol intake: never substance use type: does not use Smoking Status: Current every day smoker tobacco type: vaping alcohol intake frequency: 0-2 drinks per day Exam <Josephine Hines PA-C - Last Filed: 02/05/25 19:45> Narrative Exam Narrative: GENERAL: 54 year old patient appears stated age. Well-developed patient, in no acute distress. HEAD: Atraumatic. Normocephalic. NECK: Trachea midline. Cervical ROM intact. CARDIOVASCULAR: Regular rate and rhythm. RESPIRATORY: ?Nonlabored respirations. ?Speaking in clear, full sentences. ?Clear to auscultation. Breath sounds equal bilaterally. No wheezes, rales, or rhonchi. ? GASTROINTESTINAL: Abdomen soft, nondistended. There was tenderness to palpation in the right lower quadrant/to the right of the umbilicus, negative Alston's sign. No rebound or guarding. BS present. EXTREMITIES: No edema or joint tenderness. BACK: Subjective right CVA tenderness. NEURO: AOx3. ?Clear speech. ?Moves all 4 extremities appropriately. SKIN: No rash or erythema of visible areas Initial Vital Signs Initial Vital Signs: Vital Signs Temperature 98.3 F 02/05/25 14:29 Pulse Rate 85 02/05/25 14:29 Respiratory Rate 16 02/05/25 14:29 Blood Pressure 116/59 L 02/05/25 14:29 Pulse Oximetry 97 02/05/25 14:29 Oxygen Delivery Method Room Air 02/05/25 14:29 <Martine Salas DO - Last Filed: 02/06/25 07:37> Initial Vital Signs Initial Vital Signs: Vital Signs Temperature 98.3 F 02/05/25 14:29 Pulse Rate 85 02/05/25 14:29 Respiratory Rate 16 02/05/25 14:29 Blood Pressure 116/59 L 02/05/25 14:29 Pulse Oximetry 97 02/05/25 14:29 Oxygen Delivery Method Room Air 02/05/25 14:29 Course <Josephine Hines PA-C - Last Filed: 02/05/25 19:45> Orders Ordered: Discontinued Medications Hydrocodone Bitart/Acetaminophen (Hydrocodone/Acet 5/325 Tablet) 1 tab PO NOW ONE Stop: 02/05/25 18:47 Last Admin: 02/05/25 19:13 Dose: 1 tab Documented By: JANETTE Sodium Chloride (Normal Saline 0.9%) 1,000 mls @ 1,000 mls/hr IV BOLUS ONE Stop: 02/05/25 16:21 Last Infusion: 02/05/25 17:34 Dose: Infused Documented By: Admin: 02/05/25 16:20 Dose: 1,000 mls/hr Documented By: ORION Ketorolac Tromethamine (Ketorolac 30 Mg/Ml Vial) 15 mg IV NOW ONE Stop: 02/05/25 15:23 Last Admin: 02/05/25 15:45 Dose: 15 mg Documented By: ORION Morphine Sulfate (Morphine 4 Mg/Ml Inj) 4 mg IV NOW ONE Stop: 02/05/25 15:23 Last Admin: 02/05/25 15:47 Dose: 4 mg Documented By: ORION Morphine Sulfate (Morphine 2 Mg/Ml Inj) 2 mg IV NOW ONE Stop: 02/05/25 17:14 Last Admin: 02/05/25 18:03 Dose: 2 mg Documented By: ORION Ondansetron HCl (Ondansetron 4 Mg/2 Ml Inj) 4 mg IV NOW PRN PRN Reason: Nausea And Vomiting Ondansetron HCl (Ondansetron 4 Mg Odt) 4 mg PO NOW PRN PRN Reason: Nausea And Vomiting Ondansetron HCl (Ondansetron 4 Mg/2 Ml Inj) 4 mg IV NOW ONE Stop: 02/05/25 15:23 Last Admin: 02/05/25 15:46 Dose: 4 mg Documented By: ORION Vital Signs Vital signs: Vital Signs - 8 hr 02/05/25 14:29 02/05/25 15:20 02/05/25 18:30 Temperature 98.3 F Pulse Rate 85 85 70 Respiratory Rate 16 18 18 Blood Pressure 116/59 L Pulse Oximetry 97 97 98 Oxygen Delivery Method Room Air Room Air <Martine Salas DO - Last Filed: 02/06/25 07:37> Orders Ordered: Discontinued Medications Hydrocodone Bitart/Acetaminophen (Hydrocodone/Acet 5/325 Tablet) 1 tab PO NOW ONE Stop: 02/05/25 18:47 Last Admin: 02/05/25 19:13 Dose: 1 tab Documented By: JANETTE Sodium Chloride (Normal Saline 0.9%) 1,000 mls @ 1,000 mls/hr IV BOLUS ONE Stop: 02/05/25 16:21 Last Infusion: 02/05/25 17:34 Dose: Infused Documented By: Admin: 02/05/25 16:20 Dose: 1,000 mls/hr Documented By: ORION Ketorolac Tromethamine (Ketorolac 30 Mg/Ml Vial) 15 mg IV NOW ONE Stop: 02/05/25 15:23 Last Admin: 02/05/25 15:45 Dose: 15 mg Documented By: ORION Morphine Sulfate (Morphine 4 Mg/Ml Inj) 4 mg IV NOW ONE Stop: 02/05/25 15:23 Last Admin: 02/05/25 15:47 Dose: 4 mg Documented By: ORION Morphine Sulfate (Morphine 2 Mg/Ml Inj) 2 mg IV NOW ONE Stop: 02/05/25 17:14 Last Admin: 02/05/25 18:03 Dose: 2 mg Documented By: ORION Ondansetron HCl (Ondansetron 4 Mg/2 Ml Inj) 4 mg IV NOW PRN PRN Reason: Nausea And Vomiting Ondansetron HCl (Ondansetron 4 Mg Odt) 4 mg PO NOW PRN PRN Reason: Nausea And Vomiting Ondansetron HCl (Ondansetron 4 Mg/2 Ml Inj) 4 mg IV NOW ONE Stop: 02/05/25 15:23 Last Admin: 02/05/25 15:46 Dose: 4 mg Documented By: ORION Vital Signs Vital signs: Vital Signs - 8 hr 02/05/25 14:29 02/05/25 15:20 02/05/25 18:30 Temperature 98.3 F Pulse Rate 85 85 70 Respiratory Rate 16 18 18 Blood Pressure 116/59 L Pulse Oximetry 97 97 98 Oxygen Delivery Method Room Air Room Air MDM - Abdominal Pain <Josephine Hines PA-C - Last Filed: 02/05/25 19:45> Medical Records Attestation: I reviewed the patient's medical records. Lab Data 02/05/25 14:55 02/05/25 14:55 Labs: Lab Results 02/05/25 02/05/25 Range/Units 14:35 14:55 WBC 4.9 (4.5-11.0) X10^3/uL RBC 3.88 L (4.0-5.2) X10^6/uL Hgb 12.0 (12.0-16.0) g/dL Hct 34.9 L (36-46) % MCV 90.2 (80-100) fL MCH 31.1 (26-34) PG MCHC 34.5 (30-36) % RDW 13.3 (11.6-14.8) % Plt Count 311 (150-400) X10^3/uL Neut % (Auto) 62.6 (50-75) % Lymph % (Auto) 26.1 (25-40) % [place]ferro % (Auto) 7.0 (3-14) % Eos % (Auto) 3.2 (2-4) % Baso % (Auto) 1.1 (0-2) % Neut # (Auto) 3100 (6236-8137) /uL Lymph # (Auto) 1300 (4709-5333) /uL [place]ferro # (Auto) 300 (0-900) /uL Eos # (Auto) 200 (0-450) /uL Baso # (Auto) 100 (0-100) /uL Sodium 136 L (137-145) mmol/L Potassium 4.2 (3.4-5.1) mmol/L Chloride 104 (98-107) mmol/L Carbon Dioxide 23 (22-32) mmol/L BUN 22 H (7-17) mg/dL Creatinine 1.19 H (0.52-1.04) mg/dL Estimated GFR 55 L (>60) mL/min BUN/Creatinine Ratio 18.5 (6-22) Glucose 93 (70-100) mg/dL Calcium 9.4 (8.4-10.2) mg/dL Total Bilirubin 0.5 (0.2-1.3) mg/dL AST 24 (14-36) IU/L ALT 18 (<35) IU/L Alkaline Phosphatase 51 (38-126) U/L Total Protein 6.9 (6.3-8.2) g/dL Albumin 4.3 (3.5-5.0) g/dL Globulin 2.6 (1.7-4.1) g/dL Albumin/Globulin Ratio 1.7 (1.0-2.8) Lipase 55 (23-300) U/L Urine RBC None seen (0-5/HPF) Urine WBC 0-1/hpf (0-5/HPF) Ur Squamous Epith Cells 1-5 /hpf (0-5/HPF) Urine Bacteria Occasional (0-1) (None) Ur Culture Indicated? Cult not indicated Vol Urine Centrifuged 10ml (spun) Point of care testing: Urine Dip Bedside Urine Glucose Negative Bedside Urine Bilirubin - Negative Bedside Urine Ketone - Negative Urine Specific [place] 1.030 Bedside Urine Occult Blood + Bedside Urine pH 6 Bedside Urine Protein - Negative Bedside Urine Urobilinogen - Negative Bedside Urine Nitrite - Negative Bedside Urine Leukocytes - Negative Esterase Imaging Data CT scan - abdomen/pelvis: Radiologist's Impression: PROCEDURE: CT ABDOMEN PELVIS W CON INDICATIONS: RLQ abd pain TECHNIQUE: After the administration of intravenous contrast, axial sections acquired from the lung bases to the pubic symphysis. Coronal and sagittal reformats were performed. For radiation dose reduction, the following was used: automated exposure control, adjustment of mA and/or kV according to patient size. COMPARISON: None. FINDINGS: Image quality: Diagnostic. Lower Chest: No significant findings. ABDOMEN: Liver: No solid mass. Gallbladder: No radiopaque gallstones or wall thickening. Biliary ducts: No biliary dilation. Pancreas: No ductal dilation. Spleen: Size is within normal limits. Adrenal Glands: No adrenal nodules. Kidneys and Ureters: No hydronephrosis. No solid mass. No complex renal cystic lesion which requires follow up. Stomach and Bowel: Normal colonic caliber, without significant wall thickening. Large stool burden. Normal appendix. Peritoneum: No abnormal intraperitoneal fluid. No free air. Fat density lesions within the pelvis. Just superior to the bladder, there is a 1.4 cm fat density lesion (2/120) with a thick wall. Just posterior lateral to this is an additional fat density lesion measuring approximately 1.8 cm. Ventral Wall: No significant ventral hernia. Abdominal Nodes: No retroperitoneal or mesenteric adenopathy by size criteria. Vessels: Aorta and inferior vena cava are normal in size. PELVIS: Pelvic Organs: Hysterectomy. Bladder: No bladder wall thickening, accounting for underdistention. Pelvic Nodes: No enlarged lymph nodes. Miscellaneous: No inguinal hernias are seen. Bones: No aggressive osseous abnormality. IMPRESSION: 1. No acute findings within the abdomen or pelvis to explain patient's symptoms. 2. Small fat density lesions are seen within the pelvis measuring up to 1.8 cm. These are adjacent to the urinary bladder and hysterectomy bed. Unclear if these are related to prior hysterectomy, or represent other lipomatous lesions. No comparison imaging is available at the time of dictation. Consider follow-up imaging to assess stability or comparison to prior imaging if available. 3. Large burden of stool throughout the colon, correlate for constipation. Normal appendix. MDM Narrative Medical decision making narrative: 54-year-old female with a reported past medical history of fibromyalgia, anxiety/PTSD, total hysterectomy, prior ureterolithiasis who presents to the emergency department for right lower quadrant abdominal pain x5 days. Differential diagnosis includes but is not limited to appendicitis, cholecystitis, epiploic appendagitis, diverticulitis, colitis, pancreatitis, cholelithiasis, ureterolithiasis, nephrolithiasis, pyelonephritis, UTI, etc. On exam the patient is in no acute distress, nontoxic appearing, vital signs appropriate. She is tenderness to palpation on the right lower and middle side of her abdomen. Negative Alston's sign. No rebound or guarding. Abdominal lab work initiated in triage, ECG reveals normal sinus rhythm with a rate of 65 beats per minute, QTC 374. We will treat with fluids, Zofran, morphine, Toradol and obtain CT abdomen pelvis with IV contrast for further evaluation. Labs reveal WBC count 4.9, hemoglobin 12.0, platelets 311, sodium 136, BUN 22, creatinine 1.19 which is down from 1.37 last September. Urinalysis reveals no signs infection or blood. CT AP reveals no acute findings within the abdomen or pelvis to explain patient's symptoms. She does have small fat density lesions in the pelvis measuring up to 1.8 cm. These are adjacent to the urinary bladder and hysterectomy bed. Unclear if these are related to prior hysterectomy represent lipomatous lesions. No comparison imaging is available at time of dictation. Consider follow up imaging to assess stability or comparison to prior imaging available. Large burden of stool throughout the colon, correlate for constipation. Normal appendix. Patient's symptoms overall improving however states that she would like additional pain control prior to discharge. She is tolerating both liquid and solid p.o., abdominal exam benign on serial examinations. Discussed MiraLax to help with large stool burden, acetaminophen and Zofran if needed for pain and nausea. Imaging results were printed and all incidental findings discussed. We discussed very strict ED return precautions. Patient verbalized understanding of all information agreeable with the plan. She is stable for discharge home. <Martine Salas, - Last Filed: 02/06/25 07:37> Lab Data Labs: Lab Results 02/05/25 02/05/25 Range/Units 14:35 14:55 WBC 4.9 (4.5-11.0) X10^3/uL RBC 3.88 L (4.0-5.2) X10^6/uL Hgb 12.0 (12.0-16.0) g/dL Hct 34.9 L (36-46) % MCV 90.2 (80-100) fL MCH 31.1 (26-34) PG MCHC 34.5 (30-36) % RDW 13.3 (11.6-14.8) % Plt Count 311 (150-400) X10^3/uL Neut % (Auto) 62.6 (50-75) % Lymph % (Auto) 26.1 (25-40) % Taliaferro % (Auto) 7.0 (3-14) % Eos % (Auto) 3.2 (2-4) % Baso % (Auto) 1.1 (0-2) % Neut # (Auto) 3100 (0905-0763) /uL Lymph # (Auto) 1300 (8857-7830) /uL [place]ferro # (Auto) 300 (0-900) /uL Eos # (Auto) 200 (0-450) /uL Baso # (Auto) 100 (0-100) /uL Sodium 136 L (137-145) mmol/L Potassium 4.2 (3.4-5.1) mmol/L Chloride 104 (98-107) mmol/L Carbon Dioxide 23 (22-32) mmol/L BUN 22 H (7-17) mg/dL Creatinine 1.19 H (0.52-1.04) mg/dL Estimated GFR 55 L (>60) mL/min BUN/Creatinine Ratio 18.5 (6-22) Glucose 93 (70-100) mg/dL Calcium 9.4 (8.4-10.2) mg/dL Total Bilirubin 0.5 (0.2-1.3) mg/dL AST 24 (14-36) IU/L ALT 18 (<35) IU/L Alkaline Phosphatase 51 (38-126) U/L Total Protein 6.9 (6.3-8.2) g/dL Albumin 4.3 (3.5-5.0) g/dL Globulin 2.6 (1.7-4.1) g/dL Albumin/Globulin Ratio 1.7 (1.0-2.8) Lipase 55 (23-300) U/L Urine RBC None seen (0-5/HPF) Urine WBC 0-1/hpf (0-5/HPF) Ur Squamous Epith Cells 1-5 /hpf (0-5/HPF) Urine Bacteria Occasional (0-1) (None) Ur Culture Indicated? Cult not indicated Vol Urine Centrifuged 10ml (spun) Point of care testing: Urine Dip Bedside Urine Glucose Negative Bedside Urine Bilirubin - Negative Bedside Urine Ketone - Negative Urine Specific [place] 1.030 Bedside Urine Occult Blood + Bedside Urine pH 6 Bedside Urine Protein - Negative Bedside Urine Urobilinogen - Negative Bedside Urine Nitrite - Negative Bedside Urine Leukocytes - Negative Esterase Discharge Plan Departure Patient Disposition: Home Clinical Impression: Abdominal pain, RLQ Constipation Qualifiers: Constipation type: unspecified constipation type Qualified Code(s): K59.00 - Constipation, unspecified Instructions: DI for Abdominal Pain-Adult Activity Restrictions/Additional Instructions: Dear Ms. Bernard, Thank you for coming to the emergency department. Today you were evaluated for right lower quadrant abdominal pain. Your CT scan revealed normal appendix, normal gallbladder. You do have a large amount of stool throughout the colon, and you do have 2 small fatty lesions around the area of your prior hysterectomy. It is very important to follow up with the primary care doctor for further evaluation of the fatty lesions. The findings on your exam today and on your blood work and/or imaging is reassuring. At this time, it is not 100% certain what is causing your symptoms, but we feel you can be discharged from the emergency department. It is possible this may worsen or you may get better. Please, if you get worse or your symptoms change, return to the emergency department. Otherwise, please follow up with your primary care doctor in 1-2 days. You have been prescribed extra-strength Tylenol and nausea medicine to use if needed. Please follow up with your primary care doctor within the next 2-3 days for ER follow-up. (If you do not have a PCP you can call [phone]. ?to schedule an appointment with an [facility] Primary Care Provider) IF YOU DEVELOP ANY NEW OR WORSENING SYMPTOMS, RETURN TO THE ER! Please read the attached instructions, they highlight more specific treatments and interventions for you at home. Thank you for letting me participate in your care, Josephine Hines PA-C Prescriptions: New ondansetron 4 mg tablet,disintegrating 4 mg PO Q8H PRN (Reason: nausea and vomiting) Qty: 14 0RF acetaminophen 500 mg capsule 1,000 mg PO Q8HR PRN (Reason: pain) Qty: 30 0RF No Action estradiol [Estrace] 1 MG tablet 1 mg PO QDAY Qty: 0 prazosin 1 MG capsule 25 mg PO HS Qty: 0 duloxetine 60 MG capsule,delayed release(DR/EC) 60 mg PO QDAY Qty: 0 mirtazapine 15 MG tablet 7.5 mg PO HSP PRN (Reason: UNKNOWN) Qty: 0 Patient Comments: PT STATES NO LONGER TAKING ondansetron HCl [Zofran] 4 MG tablet 4 mg PO Q4HP PRNQty: 20 0RF tramadol 50 MG tablet 50 mg PO Q6HP PRNQty: 20 0RF lorazepam 1 MG tablet 1 mg PO TID PRN (Reason: Anxiety) Qty: 0 hydroxyzine HCl 50 MG tablet See Rx Instructions .ROUTE .COMPLEX PRN (Reason: Pain (Scale Score 1-3)) Qty: 0 Patient Comments: 50 MG AM, 50 MG PM 100MG AT HS Rx Instructions: 50 - 100 mg orally as needed bupropion HCl 200 mg PO DAILY omeprazole 40 mg capsule,delayed release(DR/EC) 40 mg PO DAILY levothyroxine 50 mcg PO QAM trazodone See Rx Instructions .ROUTE .COMPLEX Rx Instructions: 100 mg orally QHS ondansetron [Zofran ODT] 4 mg tablet,disintegrating 4 mg PO .prn PRN (Reason: Nausea And Vomiting) epinephrine [EpiPen 2-Jose G] 0.3 mg/0.3 mL auto-injector 0.3 mg IM Q5-15M PRN (Reason: anaphylaxis) Qty: 2 0RF Rx Instructions: do not exceed 3 doses per episode meloxicam [Mobic] 7.5 mg tablet 7.5 mg PO BID Qty: 20 0RF ondansetron HCl [Zofran] 4 mg tablet 4 mg PO Q6H PRN (Reason: nausea and vomiting) Qty: 10 0RF Referrals: Bhavna Ramos MD [Primary Care Provider] - Stand Alone Forms: Patient Portal/API/Survey ED Sign-out <Martine Salas DO - Last Filed: 02/06/25 07:37> Cosign ED Attending Cosignature Attestation: I was available for consultation.
[2025-02-05 15:20] VITALS: PULSE 85; RESP 18; O2SAT 97
--- NOTE | 2025-02-05 15:22 | DI.CT.S_ITS ---
PROCEDURE: CT ABDOMEN PELVIS W CON INDICATIONS: RLQ abd pain TECHNIQUE: After the administration of intravenous contrast, axial sections acquired from the lung bases to the pubic symphysis. Coronal and sagittal reformats were performed. For radiation dose reduction, the following was used: automated exposure control, adjustment of mA and/or kV according to patient size. COMPARISON: None. FINDINGS: Image quality: Diagnostic. Lower Chest: No significant findings. ABDOMEN: Liver: No solid mass. Gallbladder: No radiopaque gallstones or wall thickening. Biliary ducts: No biliary dilation. Pancreas: No ductal dilation. Spleen: Size is within normal limits. Adrenal Glands: No adrenal nodules. Kidneys and Ureters: No hydronephrosis. No solid mass. No complex renal cystic lesion which requires follow up. Stomach and Bowel: Normal colonic caliber, without significant wall thickening. Large stool burden. Normal appendix. Peritoneum: No abnormal intraperitoneal fluid. No free air. Fat density lesions within the pelvis. Just superior to the bladder, there is a 1.4 cm fat density lesion (2/120) with a thick wall. Just posterior lateral to this is an additional fat density lesion measuring approximately 1.8 cm. Ventral Wall: No significant ventral hernia. Abdominal Nodes: No retroperitoneal or mesenteric adenopathy by size criteria. Vessels: Aorta and inferior vena cava are normal in size. PELVIS: Pelvic Organs: Hysterectomy. Bladder: No bladder wall thickening, accounting for underdistention. Pelvic Nodes: No enlarged lymph nodes. Miscellaneous: No inguinal hernias are seen. Bones: No aggressive osseous abnormality. IMPRESSION: 1. No acute findings within the abdomen or pelvis to explain patient's symptoms. 2. Small fat density lesions are seen within the pelvis measuring up to 1.8 cm. These are adjacent to the urinary bladder and hysterectomy bed. Unclear if these are related to prior hysterectomy, or represent other lipomatous lesions. No comparison imaging is available at the time of dictation. Consider follow-up imaging to assess stability or comparison to prior imaging if available. 3. Large burden of stool throughout the colon, correlate for constipation. Normal appendix. Dictated by: Jose Cruz Iqbal M.D. on 02/05/2025 at 16:29 Approved by: Jose Cruz Iqbal M.D. on 02/05/2025 at 16:38
[2025-02-05 15:24] LABS: Alanine Aminotransferase 18 IU/L (<35); Albumin 4.3 g/dL (3.5-5.0); Albumin Globulin Ratio 1.7 (1.0-2.8); Alkaline Phosphatase 51 U/L (38-126); Aspartate Aminotransferase 24 IU/L (14-36); BUN Creatinine Ratio 18.5 (6-22); Bilirubin Total 0.5 mg/dL (0.2-1.3); Blood Urea Nitrogen 22 mg/dL (7-17); Calcium 9.4 mg/dL (8.4-10.2); Carbon Dioxide 23 mmol/L (22-32); Chloride 104 mmol/L (98-107); Estimated Glomerular Filt Rate 55 mL/min (>60); Globulin 2.6 g/dL (1.7-4.1); Glucose 93 mg/dL (70-100); HEMOLYSIS < 15 (0-50); Lipase 55 U/L (23-300); Potassium 4.2 mmol/L (3.4-5.1); Sodium 136 mmol/L (137-145); Total Protein 6.9 g/dL (6.3-8.2)
[2025-02-05] MEDS: KETOROLAC 30 MG/ML VIAL 15 MG IV (15:45)
[2025-02-05] MEDS: ONDANSETRON 4 MG/2 ML INJ IV (15:46)
[2025-02-05] MEDS: MORPHINE 4 MG/ML INJ IV (15:47)
[2025-02-05 15:48] LABS: RBC Urine None Seen (0-5/HPF); Urine Volume 10mL (spun); WBC Urine 0-1/HPF (0-5/HPF)
[2025-02-05 15:49] LABS: Bacteria Urine Occasional (0-1); Culture Indicated Urine Cult Not Indicated; Squamous Epithelial Cell Urine 1-5 /HPF (0-5/HPF)
[2025-02-05] MEDS: SODIUM CHLORIDE 0.9% 1,000 ML 1000 ML IV (16:20)
[2025-02-05] MEDS: MORPHINE 2 MG/ML INJ IV (18:03)
[2025-02-05 18:30] VITALS: PULSE 70; RESP 18; O2SAT 98
[2025-02-05] MEDS: HYDROCODONE/ACET 5/325 TABLET 1 TAB PO (19:13)
== END 2025-02-05 19:25 | disposition home or self-care (01) ==
PROVIDERS: Emergency Medicine; Emergency Provider Physician Assistant; PCP Family Medicine
DX: R10.31 Right lower quadrant pain (principal); K59.00 Constipation, unspecified
CPT/HCPCS: 36415; 74177; 80053; 81003; 81015; 83690; 85025; 93005; 96361; 96374; 96375; 96376; 99284; J1885; J2270; J2405; Q9967

== ENCOUNTER → 2025-05-14 08:59 | Outpatient (CLI) | payer OTHER, SELFPAY ==
--- NOTE | 2025-05-14 09:02 | DI.CT.S_ITS ---
PROCEDURE: CT ABDOMEN PELVIS W CON INDICATIONS: ABD MASS TECHNIQUE: After the administration of intravenous contrast, axial sections acquired from the lung bases to the pubic symphysis. Coronal and sagittal reformats were performed. For radiation dose reduction, the following was used: automated exposure control, adjustment of mA and/or kV according to patient size. COMPARISON: [facility], CT, KIDNEY/ URETER/BLADDER, 09/13/2016, 0:20. [facility], CT, CT ABDOMEN PELVIS W CON, 02/05/2025, 16:03. FINDINGS: Image quality: Diagnostic. Lower Chest: No significant findings. ABDOMEN: Liver: No solid mass. Small cyst in the left liver. Gallbladder: No radiopaque gallstones or wall thickening. Biliary ducts: No biliary dilation. Pancreas: No ductal dilation. Spleen: Size is within normal limits. Adrenal Glands: No adrenal nodules. Kidneys and Ureters: No hydronephrosis. No solid mass. No complex renal cystic lesion which requires follow up. Stomach and Bowel: Normal colonic caliber, without significant wall thickening. Normal appendix. Peritoneum: No abnormal intraperitoneal fluid. No free air. Ventral Wall: No significant ventral hernia. Abdominal Nodes: No retroperitoneal or mesenteric adenopathy by size criteria. Vessels: Aorta and inferior vena cava are normal in size. PELVIS: Pelvic Organs: Uterus is absent. -Fat containing nodule in the right pelvis measuring 1.7 cm, (2/120), unchanged. -Fat containing nodule in the left pelvis measuring 2.3 cm, (2/120), unchanged. Not seen remotely in 2016. Bladder: No bladder wall thickening. No stone. Pelvic Nodes: No enlarged lymph nodes. Miscellaneous: No inguinal hernias are seen. Bones: No aggressive osseous abnormality. IMPRESSION: 1. Small fat containing nodules in the pelvis x2 are unchanged. Diagnostic considerations include fat necrosis from prior surgery, colonic epiploic appendagitis, less likely benign dermoid cysts. 2. No free fluid. Dictated by: Joni Arndt M.D. on 05/14/2025 at 14:03 Approved by: Joni Arndt M.D. on 05/14/2025 at 14:17
== END ==
LOC: CT 09:00
PROVIDERS: PCP Family Medicine; Referring Provider Family Medicine; Visit Provider Family Medicine
DX: R19.00 Intra-abdominal and pelvic swelling, mass and lump, unspecified site (principal); K76.89 Other specified diseases of liver; Z90.710 Acquired absence of both cervix and uterus
CPT/HCPCS: 74177; Q9967

== ENCOUNTER 2025-11-04 17:43 | Emergency (ER) | payer OTHER, SELFPAY ==
[2025-11-04 17:58] VITALS: BP 131/66; PULSE 75; RESP 18; TEMP 37.2; O2SAT 98; BMI 29.2
--- NOTE | 2025-11-04 18:05 | ED.GENADULT ---
HPI - General Adult General Chief complaint: Skin/Abscess/Foreign Body Stated complaint: lump on head, raised and painful, x 5days Time Seen by Provider: 11/04/25 18:04 History of Present Illness HPI narrative: 55-year-old female medical history of fibromyalgia, fibromyalgia, anxiety, PTSD, total hysterectomy, prior urolithiasis, presents with raised bump on her head that she noticed the day after [place] itchy but it also causes pain when she palpates that region. Patient denies fever, chills, nausea, vomiting, trauma to the area, gait instability, stiff neck, rash. Pt takes tramadol for her fibromyalgia but feels it is not helping. Other than what is stated 14 pt ROS is negative. Related Data Home Medications ?Medication ?Instructions ?Recorded ?Confirmed estradiol 1 mg tablet (Estrace) 1 mg PO QDAY ##0 10/28/12 05/29/18 duloxetine 60 mg capsule,delayed 60 mg PO QDAY ##0 10/10/17 05/29/18 release mirtazapine 15 mg tablet 7.5 mg PO HSP PRN UNKNOWN ##0 10/10/17 05/29/18 prazosin 1 mg capsule 25 mg PO HS ##0 10/10/17 05/29/18 hydroxyzine HCl 50 mg tablet See Rx Instructions .Route 11/11/17 05/29/18 .COMPLEX PRN Pain (Scale Score 1-3) ##0 lorazepam 1 mg tablet 1 mg PO TID PRN Anxiety ##0 11/11/17 05/29/18 bupropion HCl 200 mg PO DAILY 05/24/18 05/29/18 levothyroxine 50 mcg PO QAM 05/24/18 05/29/18 omeprazole 40 mg capsule,delayed 40 mg PO DAILY 05/24/18 05/29/18 release ondansetron 4 mg disintegrating 4 mg PO .prn PRN Nausea And 05/24/18 05/29/18 tablet (Zofran ODT) Vomiting trazodone See Rx Instructions .Route 05/24/18 05/29/18 .COMPLEX SLEEP Previous Rx's ?Medication ?Instructions ?Recorded ondansetron HCl 4 mg tablet 4 mg PO Q4HP PRN #20 tabs 10/10/17 (Zofran) tramadol 50 mg tablet 50 mg PO Q6HP PRN #20 tabs 10/10/17 meloxicam 7.5 mg tablet (Mobic) 7.5 mg PO BID #20 tabs 12/07/20 ondansetron HCl 4 mg tablet 4 mg PO Q6H PRN nausea and 12/07/20 (Zofran) vomiting #10 tabs epinephrine 0.3 mg/0.3 mL 0.3 mg (0.3 mL) IM Q5-15M PRN 07/15/21 injection, auto-injector (EpiPen anaphylaxis #2 ea 2-Jose G) acetaminophen 500 mg capsule 1,000 mg (2 x 500 mg) PO Q8HR PRN 02/05/25 pain #30 caps ondansetron 4 mg disintegrating 4 mg PO Q8H PRN nausea and 02/05/25 tablet vomiting #14 tabs ketorolac 10 mg tablet 10 mg PO Q6H PRN pain #20 tabs 11/04/25 triamcinolone acetonide 0.1 % 1 applic topical BID #30 grams 11/04/25 topical cream Allergies Allergy/AdvReac Type Severity Reaction Status Date / Time codeine (CODEINE) Allergy Severe ITCHY / Verified 11/04/25 17:58 RASH latex (LATEX) Allergy Mild HIVES Verified 11/04/25 17:58 haloperidol (HALOPERIDOL) AdvReac Severe DYSTONIA Verified 11/04/25 17:58 methocarbamol (From ROBAXIN) AdvReac Severe DYSTONIA Verified 11/04/25 17:58 prochlorperazine AdvReac Severe DYSTONIA Verified 11/04/25 17:58 (PROCHLORPERAZINE) gabapentin AdvReac Agitated Verified 11/04/25 17:58 Review of Systems Review of Systems ROS Unobtainable: All systems reviewed & are unremarkable except as noted in HPI and below Patient History Medical History (Updated 11/04/25 @ 18:17 by Maciej Huerta DO) Anxiety PTSD (post-traumatic stress disorder) Fibromyalgia Surgical History H/O: hysterectomy Family History Father Cancer Social History household members: family and other occupational status: disabled alcohol intake: never substance use type: does not use tobacco type: vaping alcohol intake frequency: 0-2 drinks per day Exam Narrative Exam Narrative: GENERAL: [55] year old patient appears stated age. Well-developed patient, in mild distress. HEAD: Atraumatic. Normocephalic. EYES: Pupils equal round and reactive. Extraocular motions intact. No scleral icterus. No injection or drainage. NEURO: AOx3. SKIN: Dime-circular sized macular papular lesion on top of the scalp Medical Decision Making MDM Narrative Medical decision making narrative: All lab work, vital signs, nurse triage note, medication list, previous ER visits, and all imaging studies reviewed. Differential dx AK, SK, dermatitis. D/c home on trimacinolone rx. F/u with pcp 1-2 weeks if no improvement Discharge Plan Departure Patient Disposition: Home Clinical Impression: Lesion of skin of scalp Instructions: Seborrheic Dermatitis Activity Restrictions/Additional Instructions: Return with new or worsening symptoms. Follow up with PCP in 1-2 weeks if no improvement in symptoms. Prescriptions: New triamcinolone acetonide 0.1 % cream 1 applic topical BID Qty: 30 0RF ketorolac 10 mg tablet 10 mg PO Q6H PRN (Reason: pain) Qty: 20 0RF Rx Instructions: maximum total duration of 5 days from all oral, intranasal, or parenteral formulations No Action estradiol [Estrace] 1 MG tablet 1 mg PO QDAY Qty: 0 prazosin 1 MG capsule 25 mg PO HS Qty: 0 duloxetine 60 MG capsule,delayed release(DR/EC) 60 mg PO QDAY Qty: 0 mirtazapine 15 MG tablet 7.5 mg PO HSP PRN (Reason: UNKNOWN) Qty: 0 Patient Comments: PT STATES NO LONGER TAKING ondansetron HCl [Zofran] 4 MG tablet 4 mg PO Q4HP PRNQty: 20 0RF tramadol 50 MG tablet 50 mg PO Q6HP PRNQty: 20 0RF lorazepam 1 MG tablet 1 mg PO TID PRN (Reason: Anxiety) Qty: 0 hydroxyzine HCl 50 MG tablet See Rx Instructions .ROUTE .COMPLEX PRN (Reason: Pain (Scale Score 1-3)) Qty: 0 Patient Comments: 50 MG AM, 50 MG PM 100MG AT HS Rx Instructions: 50 - 100 mg orally as needed bupropion HCl 200 mg PO DAILY omeprazole 40 mg capsule,delayed release(DR/EC) 40 mg PO DAILY levothyroxine 50 mcg PO QAM trazodone See Rx Instructions .ROUTE .COMPLEX Rx Instructions: 100 mg orally QHS ondansetron [Zofran ODT] 4 mg tablet,disintegrating 4 mg PO .prn PRN (Reason: Nausea And Vomiting) epinephrine [EpiPen 2-Jose G] 0.3 mg/0.3 mL auto-injector 0.3 mg IM Q5-15M PRN (Reason: anaphylaxis) Qty: 2 0RF Rx Instructions: do not exceed 3 doses per episode meloxicam [Mobic] 7.5 mg tablet 7.5 mg PO BID Qty: 20 0RF ondansetron HCl [Zofran] 4 mg tablet 4 mg PO Q6H PRN (Reason: nausea and vomiting) Qty: 10 0RF ondansetron 4 mg tablet,disintegrating 4 mg PO Q8H PRN (Reason: nausea and vomiting) Qty: 14 0RF acetaminophen 500 mg capsule 1,000 mg PO Q8HR PRN (Reason: pain) Qty: 30 0RF Referrals: Bhavna Ramos MD [Primary Care Provider, Family Practice] Stand Alone Forms: Patient Portal/API
== END 2025-11-04 18:49 | disposition home or self-care (01) ==
PROVIDERS: Emergency Provider Family Medicine; PCP Family Medicine
DX: L98.9 Disorder of the skin and subcutaneous tissue, unspecified (principal); R22.0 Localized swelling, mass and lump, head; R51.9 Headache, unspecified; M79.7 Fibromyalgia
CPT/HCPCS: 99281